=== PATIENT | male | born 1945 | race Caucasian/White ===

== ENCOUNTER 2024-11-01 13:25 | Outpatient (AMB) | payer MEDICARE, BC, SELFPAY ==
--- NOTE | 2024-11-01 13:27 | MHC.OFFVIS ---
Vital Signs 11/01/24 13:29 Height 6 ft Weight 194 lb BMI 26.3 Intake Visit Reasons: Right shoulder pain and weakness Intake Note: Bulmaro is a 78 year old left hand dominant male who presents with complaints of progressively worsening right shoulder pain and weakness. The patient did undergo left shoulder rotator cuff repair surgery in 2016. He reports minimal discomfort in his left shoulder. He describes his right shoulder pain as sharp and severe in nature. Most of the pain is along the lateral aspect of his shoulder. His right shoulder pain has gotten worse over the last year in spite of continued non operative treatments. He has tried physical therapy exercises which aggravated his pain. Has also tried Tylenol and anti-inflammatory medicines which gave him minimal relief. The patient reports pain and weakness when lifting his right hand above shoulder height. Allergies No Known Allergies Allergy (Verified 11/01/24 13:30) Medication List - Last Reconciled 11/01/24 by Shalom Lee MD No Known Home Meds Physical Exam Vital Signs: BMI result Body Mass Index 26.3 Const Other: Well-nourished well-developed very friendly male awake alert and oriented x3 in no acute distress Extrem Other: Right shoulder examination shows decreased range of motion when compared to his left shoulder, 4/5 strength with supraspinatus testing, positive impingement signs, tenderness over his acromioclavicular joint, Results Reviewed Results Reviewed: X-ray report of the patient's right shoulder shows acromioclavicular joint narrowing, no acute bony abnormalities Assessment & Plan Assessment & Plan (1) Rotator cuff insufficiency of right shoulder: Code(s): M25.311 - Other instability, right shoulder Category: Medical Plan Mr. Porter presents with right shoulder pain and weakness due to impingement syndrome and possible rotator cuff tearing. Thus, I will send the patient for an MRI of his right shoulder for further evaluation. I will see him back once the MRI is completed to discuss the findings and treatment options. Feel free to call me at any time should questions regarding his orthopedic management arise. I spent 20 minutes in reviewing the patient's records and imaging studies, seeing the patient and documenting in the medical record. Orders: Orders MR shoulder RT wo con Today M25.311 - Other instability, right shoulder Coding Level of Care Code New Pt Level 3 (64144) Complex EM visit Add On G2211 Diagnoses Rotator cuff insufficiency of right shoulder M25.311
[2024-11-01 13:29] VITALS: BMI 26.3
== END 2024-11-01 13:49 | disposition home or self-care (01) ==
LOC: HO.HOS 13:25
PROVIDERS: Visit Provider Orthopaedic Surgery
DX: M25.311 Other instability, right shoulder (principal)
CPT/HCPCS: 99203; G2211

== ENCOUNTER → 2024-11-01 13:25 | Outpatient (BNVA) | payer BC, MEDICARE, SELFPAY | PROVIDERS: Visit Provider Orthopaedic Surgery | DX: M25.311 Other instability, right shoulder (principal) | CPT/HCPCS: 99202 ==

== ENCOUNTER → 2024-11-07 07:37 | Outpatient (BNV) | payer MEDICARE, BC, SELFPAY | PROVIDERS: PCP Internal Medicine; Visit Provider Radiology Diagnostic Radiology | DX: M25.511 Pain in right shoulder (principal) | CPT/HCPCS: 73221 ==

== ENCOUNTER 2024-11-07 07:59 | Outpatient (REF) | payer MEDICARE, BC, SELFPAY ==
--- NOTE | ~2024-11-07 | MR_ITS ---
EXAMINATION: MR SHOULDER, RIGHT CLINICAL INFORMATION: 78-year-old male with chronic right shoulder pain times years. History of osteoarthritis. Instability, right shoulder. COMPARISON: None TECHNIQUE: Multiplanar multisequence MR imaging of the right shoulder was done without IV contrast. Examination performed on a 1.5 Shanti Siemens unit utilizing standard sequences. FINDINGS: Rotator Cuff and Biceps Tendon: Supraspinatus: Full thickness tear in the critical zone measuring 8 mm coronal plane and 6 mm sagittal plane, with fluid gap. The anterior fibers remain intact. There is an associated myotendinous tear extending to the bursal surface (series 8, images 13-15). No significant atrophy of the muscle belly. Infraspinatus: No full-thickness tear or tendinous retraction. Mildly increased intrasubstance signal in the distal tendon consistent with tendinopathy. There is an interstitial myotendinous delamination type focal tear (series 9, image 19). There is a normal muscle belly. Subscapularis: Intact without discrete tear. Mild intrasubstance increased signal is consistent with tendinopathy. Normal muscle belly. Teres Minor: Intact and normal in signal. Normal muscle belly. Biceps Long Head: Normally located within the bicipital groove. Normal morphology. Mildly increased fluid within the tendon sheath. Mild increased signal within the tendon in the rotator interval consistent with tendinopathy. The bicipital anchor is intact. AC Joint and Acromiohumeral Arch: Moderate hypertrophic arthropathy with joint capsular distention and mild periarticular edema. There is both superior and undersurface significant spurring. There is moderate encroachment upon the supraspinatus outlet (series 8, image 12). There is a type II acromion. There are tiny subacromial spurs. Glenohumeral Joint and Labrum: There is normal joint fluid present. There is mild superficial cartilaginous thinning and eburnation, without discrete full-thickness defects. There is minimal marginal osteophytic spurring. No subchondral bone plate edema identified. The glenoid labrum demonstrates increased linear T2 signal within the superior labrum extending into the anterior labrum to the equator, suspicious for tearing. The posterior labrum, and inferior labrum appear intact. Osseous Structures: Aside from AC joint periarticular edema, no abnormal signal identified. Spino-glenoid Notch: Normal. Quadrilateral Space: Normal. Other: Fluid in the subacromial/subdeltoid bursa, nonspecific in the setting of full-thickness rotator cuff tear. No thickening of the glenohumeral ligaments identified. MR/MR shoulder RT wo con IMPRESSION: 1. Full-thickness tear of the supraspinatus tendon within the critical zone as detailed. Associated myotendinous injury. No atrophy of the muscle belly. 2. Tendinopathy of the subscapularis and infraspinatus tendons without discrete tear. Associated interstitial myotendinous injury of the infraspinatus. 3. Findings highly suggestive of anterior and superior labral tearing. 4. Moderate spurring of the AC joint, with moderate encroachment upon the supraspinatus outlet. 5. Mild osteoarthrosis of the glenohumeral joint. Electronically signed by: Steven Lanier MD 11/07/2024 03:43 PM EDT
--- OUTSIDE RECORDS SUMMARY | 2024-11-07 08:06 | XMS_ITS | Continuity of Care Document ---
Author Organization [facility] Address [address] [place] [phone] Care Team Providers Care International Affairs Vice President Name Role Phone Zoey Wells MD Primary Care Physician [phone] Encounter [place] Date(s): 09/10/24 - 10/10/24 [facility] [address] [place] [phone] Encounter Type: Triage Allergies, Adverse Reactions, Alerts No Known Allergies Immunizations Given and Recorded Vaccine Date Status Refusal Reason influenza virus vaccine, inactivated 06/25/23 Tai rded influenza virus vaccine, inactivated 05/24/22 Tai rded influenza virus vaccine, inactivated 04/30/21 Tai rded influenza virus vaccine, inactivated 04/18/20 Tai rded influenza virus vaccine, inactivated 07/27/19 Tia rded influenza virus vaccine, inactivated 08/10/18 Tai rded influenza virus vaccine, inactivated 06/07/17 Tai rded influenza virus vaccine, inactivated 09/10/16 Tai rded influenza virus vaccine, inactivated 07/04/14 Tai rded influenza virus vaccine, inactivated 08/31/13 Tai rded influenza virus vaccine, inactivated 06/19/12 Tai rded [id number] 12y+ bivalent booster vax 05/24/22 Recorded SARS-CoV-2 (COVID-19) mRNA BNT-162b2 vac 07/01/21 Recorded SARS-CoV-2 (COVID-19) mRNA BNT-162b2 vac 11/24/20 Recorded SARS-CoV-2 (COVID-19) mRNA BNT-162b2 vac 11/03/20 Recorded zoster vaccine, inactivated 08/18/20 Recorded zoster vaccine, inactivated 08/16/20 Recorded zoster vaccine, inactivated 04/22/20 Recorded tetanus/diphtheria/pertussis, acel(Tdap) 08/15/20 Recorded tetanus/diphtheria/pertussis, acel(Tdap) 06/18/09 Recorded tetanus-diphtheria toxoids (Td) 04/18/20 Recorded tetanus-diphtheria toxoids (Td) 12/18/02 Recorded pneumococcal 13-valent vaccine 01/08/16 Recorded Zoster Vaccine Live 10/15/13 Recorded pneumococcal 23-valent vaccine 07/11/12 Recorded Medications Colace sodium 100 mg oral capsule 100 mg, 1, capsule, By Mouth, 2 times a day, # 20 capsule, Refills 0, Tot. Refills 0, Maintenance, 06/06/24 11:49:00 AM EDT, Route to Pharmacy Electronically, [facility]/pharmacy #[id number], Partial fill upon patient request if the prescription is for a schedule II opioid drug., 185, cm, 06/06/24 8:25:00 EDT, H eight, 84.3, kg, 06/06/24 8:25:00 EDT, Dry Weight Start Date: 06/06/24 Stop Date: 06/16/24 Status: Ordered Quantity: 20.0 Unit: capsule Repeat number: 1 Multi Vitamin+ 0 Refills, Maintenance, 12/08/23 8:59:00 AM EDT, Partial fill upon patient request if the prescription is for a schedule II opioid drug. Start Date: 12/08/23 Status: Ordered Repeat number: 1 omeprazole 20 mg oral delayed release tablet 1 tablet = 20 mg, By Mouth, 2 times a day, # 60 tablet, 1 Refills, Maintenance, 06/12/24 3:25:00 PMEDT, EC Tablet, [facility]acy #[id number], Partial fill upon patient request if the prescription is for a schedule II opioid drug., 185, cm, 06/12/24 14:12:00 EDT, Height, 84.3, kg, 06/06/24 8:25:00 EDT, Dry Weight Start Date: 06/12/24 Status: Ordered Quantity: 60.0 Unit: tablet Repeat number: 2 tiZANidine 4 mg oral tablet 4 mg, 1, tablet, By Mouth, Daily at bedtime, as needed, # 30 tablet, Refills 0, Tot. Refills 0, Maintenance, 06/06/24 11:49:00 AM EDT, Route to Pharmacy Electronically, [facility]/pharmacy #[id number], Partial fill upon patient request if the prescription is for a schedule II opioid drug., 185, cm, 06/06/24 8:25:00 EDT, Height, 84.3, kg, 06/06/24 8:25:00 EDT, Dry Weight Start Date: 06/06/24 Stop Date: 07/06/24 Status: Ordered Quantity: 30.0 Unit: tablet Repeat number: 1 Problem List Condition Confirmation Course Effective Dates Status H ealth Status Informant Gait disorder Confirmed Active Aortic atherosclerosis Confirmed Active Carpal tunnel syndrome Confirmed Active Cervical disc disease Confirmed Active Chronic pain in left shoulder Confirmed Active Alcohol use Confirmed Active Elevated BP without diagnosis of hypertension Confirmed Active Right wrist fracture Confirmed Active Fracture of right ankle Confirmed Active S/P laminectomy Confirmed Active History of BPH Confirmed Active Hiccups Confirmed Active S/P bilateral inguinal hernia repair Confirmed Active H/O rotator cuff surgery Confirmed Active [place]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 Kidney lesion Confirmed Active Left inguinal hernia Confirmed Active Abnormal liver function tests Confirmed Active Neck pain Confirmed Active Numbness Confirmed Active Osteoarthritis Confirmed Active Left shoulder pain Confirmed Active Palpitations Confirmed Active Medicare annual wellness visit, subsequent Confirmed Active Peripheral neuropathy Confirmed Active Polyclonal gammopathy Confirmed Active Right shoulder pain Confirmed Active Tubular adenoma Confirmed Active Social History Social History Type Response Smoking Status Former smoker, quit more than 30 days ago entered on: 08/13/21 Sex Sex Representation Male (finding) Implantable Device List Procedure Provider Procedure Date Device Type Site Repair Hernia Inguinal Open Jairo Morales MD 03/09/23 Un known Groin Left Device Identifier Serial Number Lot or Batch Number Manufacturing Date Expiration Date Distinct Identification Code MRI Safety Implantable Status Assigning Authority Unknown Unknown [id number] Unknown 06/11/27 Unknown Unknown Active Unknown Patient Care team information Care Team Personnel Name: Zoey Wells MD Position: [facility] Physician - Primary Care Member Role: PCP Address: [address] [place] [id number] Telecom: Care Team Related Persons Name: GHAZAL HEALY Insurance Providers Guarantor name: HADLEY HEALY Health Plan Information #: 1 Payer: MEDICARE PART B OUTPT Member Number: NA Policy Number: NA Group Number: NA Health Plan Information #: 2 Payer: BLUE MEDICARE SUPPL Member Number: NA Policy Number: NA Group Number: NA
--- OUTSIDE RECORDS SUMMARY | 2024-11-07 08:06 | XMS_ITS | Encounter Summary ---
Author Organization [facility] Address [address] [place] [phone] Phone Care Team Providers Care Duct Maker Name Role Phone Unavailable Primary Care Provider Unavailabl e Reason for Visit * MRI/CAT Scan - Closed Specialty Diagnoses / Procedures Referred By Contac t Referred To Contact Procedures MRI Outside Upper Extremity (No Interpretation) Salvador Lee MD [address] [place], [place] [phone] Email: [email or web address] Referral ID Status Reason Start Date Expiration Date Visits Re quested Visits Authorized [id number] Closed 03/15/2017 03/15/2018 1 1 Encounter Details Date Type Department Care Team (Late st Contact Info) Description 06/15/2016 Hospital Encounter [facility] [address] [place] [phone] Salvador Lee MD [address] [place] [phone] [email or web address] Social History Tobacco Use Types Packs/Day Years [...] Recorded Sex Assigned at Not on file Gender Identity Not on file Sexual Orientation Not on file documented as of this encounter Plan of Treatment Not on file documented as of this encounter Procedures Procedure Name Priority Date/Time Associated Diagnosis Comments MRI UPPER EXTREMITY OUTSIDE (NO INTERPRETATION) Routine 06/15/2016 12:00 AM EDT documented in this encounter Results * MRI Outside Upper Extremity (No Interpretation) (06/15/2016 12:00 AM EDT) Narrative [facility] - 03/15/2017 2:28 PM EDT This study is for PACS storage only and not for interpretation. Salvador Lee MD IMG OUTSIDE IMAGING W/OUT INTERPRETATION [facility] documented in this encounter Visit Diagnoses Not on filedocumented in this encounter Additional Source Comments The information contained in this document represents components of the legal health record. It is not the complete legal health record.[facility]
--- OUTSIDE RECORDS SUMMARY | 2024-11-07 08:06 | XMS_ITS | Data Portability ---
Author Organization [place] - [facility] [place], [facility] Address [address] [place] [phone] Assessment No assessment recorded. Plan of Treatment Reminders Order Date Submit Date Provider Last Modified By Organization Details Last Modified Time Details Appointments None recorded. Lab CBC w/ auto diff 2022 023 [employer] [facility], [address] [place] [address], [address], 3 12:59:56 CMP, serum or plasma 2022 023 [employer] [facility], [address] [place] [address], [address], 3 12:59:56 Referral general surgeon referral 2022 023 [email or web address] 43 Tye Gama MD, [address] [place] [address], [address], 3 08:04:30 Procedures None recorded. Surgeries None recorded. Imaging CT, abdomen + pelvis, w/ contrast 2022 023 tamar [facility] [address] [place], [address], 3 20:20:36 Medication Orders None recorded. Patient TargetsNo targets recorded. Patient Instructions Encounter Date Encounter Id Patient Instructions Last Modified By Organization Details Last Modified Time 11/16/2022 [id number] abdominal pain: care instructions [email or web address] Not available 11/16/2022 10:11:24 hernia: care instructions [email or web address] Not available 11/16/2022 10:11:24 We will obtain b asic labs along with a CT scan of the abdomen and pelvis. This will rule out hernia and any underlying abnormality. The patient is afebrile no abdominal pain pain is intermittent and easily reducible no evidence of incarceration on physical examination. We will give a general surgeon referral. And obtain CT scan of the abdomen and pelvis. The patient and the provider discussed action, dose, frequency and side effects of all medications. We also discussed any sided effects and contraindications to taking the medications. The differential diagnosis, working clinical impression and treatment have been discussed in detail with the patient and/or caregivers. Medical decision making was shared with the patient who agrees with the current plan of care and feels comfortable to be discharged. They have been given the opportunity ask questions and they demonstrate insight regarding evaluation of emergent medical condition and to the follow-up instructions and agree to follow up with her primary doctor as well as specialist if indicated on discharge. As discussed at bedside there also informed if any new symptoms developed, complaints, worsening symptoms or they cannot obtain follow-up to immediately return to the emergency department for re-evaluations. The test performed have a limitations due to the complexity of the body's makeup and may need to be repeated and additional testing obtained to identify bodies underlying cause of complaints. Patient and responsible constitution party were given information regarding the discharge instructions findings of the exam and workup urgent care were discussed and I answered all questions about the patient's condition and treatment plan that were asked. The patients voiced full understand prior to discharge. [email or web address] Not available 11/16/2022 10:11:07 Reason for Referral General Surgeon Referral for Hernia of anterior abdominal wall Referring Physician: Ketan Carroll, Urgent Care, Encounter Date: 11/16/2022 Results Created Date Observation Date Name Description Value Unit Range Abnormal Flag Note LastModifiedBy Organization Detail LastModifiedTime Result Notes None recorded. Medical Equipment None Reported. Allergies No known drug allergies Medications Name Sig Start Date Stop Date Status Note LastModified by Organization Details LastModified Time chlorhexidine gluconate 0.12 % mouthwash 11/16 completed Not Available Not Available Not Available Vitals Date Recorded Body weight Heart rate Respiratory rate Oxygen saturation Oxygen saturation in Arterial blood by Pulse oximetry Body temperature Body mass index (BMI) Body height Systolic blood pressure Diastolic blood pressure Provider Name and Address Organization Details Last Updated DateTime 3 69117.2 9 g 78 /min 16 /min 98 % 98 % 97.8 [degF] 26.9 kg/m2 182.88 cm 142 mm[Hg] 70 mm[Hg] Theresa Waqar, X-ray [facility] [place] 09:57:51 Social History None recorded. Functional Status None recorded. Mental Status None recorded. Family History Nothing Reported. Medical History No medical history recorded. Past Encounters Encounter ID Performer Location Encounter Start Date Encounter Closed Date Diagnosis/Indication Diagnosis SNOMED-CT Code Diagnosis ICD10 Code Diagnosis Note [id number] KETAN CARROLL NP [facility] [address] [place] [phone] 11/16/2022 09:35:47 11/16/2022 11:12:51 Hernia of anterior abdominal wall 997506703 K43.9 Health Concerns Section Related Observation LastModified by Organization Detai ls LastModified Time None Recorded Concern Status LastModified by Organization Details LastModified Time None Recorded Advance Directives Directive None Recorded Payers Encounter Date Sequence Insurance Name Policy Number Policy Agustin Covered Member ID Agustin Member ID Guarantor Name 11/16/2022 1 [place] Bulmaro Porter [id number] Bulmaro Porter Notes Date Note Type Note Provider Name and Address Organization Details Recorded Time 11/16/2022 text/html This is a 80-year-old male patient presents to the urgent care he had surgery back and 1998 for a inguinal hernia surgery he has noticed pain over the last year intermittently in the left lower pelvic region. And feels that he may notice another hernia that is present. He has had some warm sensation in his area and also also noticed that he has had some intermittent discomfort. The patient states no nausea vomiting or diarrhea no rectal bleeding. No fever or chills. No systemic symptomatologies. Pain is exacerbated when leaning forward. KETAN CARROLL NP [address] [place], [phone], [address] 11/16/2022 10:11:50
--- OUTSIDE RECORDS SUMMARY | 2024-11-07 08:06 | XMS_ITS | Clinical Summary ---
Author Organization [facility] Address [address] [place] [address] Care Team Providers Care Shipping Inspector Name Role Phone Unavailable Primary Care Provider Unavailabl e Surgical History Surgery Date Site/Laterality Comments OTHER SURGICAL HISTORY 06/15 PROCEDURE: LA OPEN TREATMENT RADIAL SHAFT FRACTURE; COMMENT: at wrist with 3 pins HERNIA REPAIR PROCEDURE: HISTORICAL HERNIA REPAIR/ING; COMMENT: Left HERNIA REPAIR age 15 PROCEDURE: HISTORICAL HERNIA REPAIR/ING; COMMENT: Right inguinal ANKLE SURGERY R distal tib Fx PROCEDURE: HISTORICAL ANKLE SURGERY; COMMENT: Fracture set, surg for bone spurs COLONOSCOPY 03/17 PROCEDURE: HISTORICAL COLONOSCOPY; COMMENT: good for [address] William OTHER SURGICAL HISTORY 05/18/13 PROCEDURE: COLON CA SCRN NOT HI RSK IND; COMMENT: tics; repeat in ten yrs ROTATOR CUFF REPAIR 07/26/16 Left PROCEDURE: HISTORICAL ROTATOR CUFF REPAIR; COMMENT: Dr. Lee, [facility], infraspinatus tear, spur TONSILLECTOMY PROCEDURE: HISTORICAL TONSILLECTOMY Medical History Medical History Date Comments Unspecified arthropathy, ankle and foot 6 DX:Unspecified arthropathy, ankle and foot; COMMENT: skiing distal tib Fx '74, spur surg '80 Amblyopia 07/30/08 DX:Amblyopia Cervicalgia 06/15/2009 DX:Cervicalgia BPH (benign prostatic hyperplasia) DX:BPH (benign prostatic hyperplasia) Family History Medical History Relation Name Comments No Known Problems Aunt No Known Problems Brother No Known Problems Father No Known Problems Maternal Grandfather No Known Problems Maternal Grandmother Glaucoma Mother Macular degeneration Mother No Known Problems Other No Known Problems Paternal Grandfather No Known Problems Paternal Grandmother No Known Problems Sister 1 No Known Problems Sister 2 No Known Problems Uncle Blindness Neg Hx Cataracts Neg Hx Strabismus Neg Hx Relation Name Status Comments Aunt Brother Father (Age 87) bradycardi a, pacemaker Maternal Grandfather Maternal Grandmother Mother (Age 97) blind glau coma, thyroid, stroke Other Paternal Grandfather Paternal Grandmother Sister 1 (Age 35) Diabetes t ype 1 Sister 2 (Age 63) Multiple s clerosis, RA, bedridden, 12/2011 Uncle Social History Tobacco Use Types Packs/Day Years Used Date Smoking Tobacco: Former Cigarettes Smokeless Tobacco: Never Alcohol Use Standard Drinks/Week Comments Yes 0 (1 standard drink = 0.6 oz pur e alcohol) Sex and Gender Information Value Date Recorded Sex Assigned at Not on file Legal Sex Male 8:44 AM EST Gender Identity Not on file Sexual Orientation Not on file Obstetrics History Plan of Treatment Health Maintenance Due Date Last Done Comments RSV Immunization Patients 60+ Years Old (1 - 1-dose 75+ series) 2021 COVID-19 Vaccine ( season) 2024 07/01/2021, 11/24/2020, 11/03/2020 Influenza Vaccine (#1) 2024 , 04/18/2020, 07/23/2019, Additional history exists Cholesterol Screening (Lipid Panel) 06/05/2024 Depression Screening 06/05/2024 Falls Risk Assessment 06/05/2024 Hepatitis C Screening 06/05/2024 Social Influencers of Health Screening 06/05/2024 DTaP,Tdap,and Td Vaccines (4 - Td or Tdap) 08/15/2030 08/15/2020, 04/18/2020, 06/18/2009 Pneumococcal Vaccine: 50+ Years Completed 01/08/2016, 07/11/2012 Zoster Vaccines Completed 08/15/2020, 03/2020, 10/15/2013 HIB Vaccines Aged Out No longer eligi ble based on patient's age to complete this topic HPV Vaccines Aged Out No longer eligi ble based on patient's age to complete this topic Hepatitis A Vaccines Aged Out No long er eligible based on patient's age to complete this topic Hepatitis B Vaccines Aged Out No long er eligible based on patient's age to complete this topic IPV Vaccines Aged Out No longer eligi ble based on patient's age to complete this topic MMR Vaccines Aged Out No longer eligi ble based on patient's age to complete this topic Meningococcal ACWY Vaccine Aged Out N o longer eligible based on patient's age to complete this topic Meningococcal B Vacine Aged Out No lo nger eligible based on patient's age to complete this topic RSV Immunization Patients Under 20 months Aged Out No longer eligible based on patient's age to complete this topic Varicella Vaccines Aged Out No longer eligible based on patient's age to complete this topic Advance Directives Documents on File Type Date Recorded Patient Church Warden Expl anation Health Care Decision (hx) 07/19/2016 AD LIZBET DIRECTIVE
--- OUTSIDE RECORDS SUMMARY | 2024-11-07 08:06 | XMS_ITS | Encounter Summary ---
Author Organization [facility] Address [address] [place] [address] [place] [phone] Phone Care Team Providers Care Continuous Mining Machine Coal Miner Name Role Phone Danielle Hermosillo MD Primary Care Pro vider Encounter Details Date Type Department Care Team (Late st Contact Info) Description 03/15/2017 Procedure Pass [facility] [address] [place] [address] Social History Tobacco Use Types Packs/Day Years Used Date Smoking Tobacco: Never Assessed Sex and Gender Information Value Date Recorded Sex Assigned at Not on file Gender Identity Not on file Sexual Orientation Not on file documented as of this encounter Plan of Treatment Not on file documented as of this encounter Visit Diagnoses Not on filedocumented in this encounter Care Teams Continuous Mining Machine Coal Miner Relationship Specialty Start Date End Date Danielle Hermosillo MD [address] [place] [address] PCP - General Internal Medicine 01/20/17 documented as of this encounter Additional Source Comments The information contained in this document represents components of the legal health record. It is not the complete legal health record.[facility]
--- OUTSIDE RECORDS SUMMARY | 2024-11-07 08:06 | XMS_ITS | Continuity of Care Document ---
Author Organization [facility] Address [address] [place] [address]- Care Team Providers Care Casting Room Helper Name Role Phone Russell HILL, Zoey Amaya Primary Care Physician Encounter [facility] Date(s): 09/10/24 - 10/10/24 [facility] [place] [address] [place], [place] [address] Encounter Type: Triage Allergies, Adverse Reactions, Alerts No Known Allergies Immunizations Given and Recorded Vaccine Date Status Refusal Reason influenza virus vaccine, inactivated 06/25/23 Tai rded influenza virus vaccine, inactivated 05/24/22 Tai rded influenza virus vaccine, inactivated 04/30/21 Tai rded influenza virus vaccine, inactivated 04/18/20 Tai rded influenza virus vaccine, inactivated 07/27/19 Tai rded influenza virus vaccine, inactivated 08/10/18 Tai rded influenza virus vaccine, inactivated 06/07/17 Tai rded influenza virus vaccine, inactivated 09/10/16 Tai rded influenza virus vaccine, inactivated 07/04/14 Tai rded influenza virus vaccine, inactivated 08/31/13 Tai rded influenza virus vaccine, inactivated 06/19/12 Tai rded [id number] 12y+ bivalent booster vax 05/24/22 Recorded SARS-CoV-2 [...] 11:49:00 AM EDT, Route to Pharmacy Electronically, [facility]/pharmacy #[id number], Partial fill upon patient request if [...] 11:49:00 AM EDT, Route to Pharmacy Electronically, [facility]/pharmacy #[id number], Partial fill upon patient request if [...] Active H/O rotator cuff surgery 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 Kidney lesion [...] Safety Implantable Status Assigning Authority Unknown Unknown [id number] Unknown 06/11/27 Unknown Unknown Active Unknown Patient Care team information Care Team Personnel Name: Zoey Wells MD Position: S Physician - Primary Care Member Role: PCP Address: [address] [place] [phone]- Telecom: Care Team Related Persons Name: GHAZAL HEALY Insurance Providers Guarantor name: HADLEY HEALY Health Plan Information #: 1 Payer: MEDICARE PART B OUTPT Member Number: NA Policy Number: NA Group Number: NA Health Plan Information #: 2 Payer: BLUE MEDICARE SUPPL Member Number: NA Policy Number: NA Group Number: NA
--- OUTSIDE RECORDS SUMMARY | 2024-11-07 08:06 | XMS_ITS | Clinical Summary ---
Author Organization [facility] Address [address] [place] [address] Phone Care Team Providers Care Stock Drier Tender Name Role Phone Danielle Hermosillo MD Primary Care Pro vider Social History Tobacco Use Types Packs/Day Years [...] on file Sexual Orientation Not on file Plan of Treatment Health Maintenance Due Date Last Done Comments LIPID PANEL 1946 DEPRESSION SCREENING 1958 SMOKING Hx and SMOKELESS TOBACCO SCREENING 11/21/1959 HEPATITIS C SCREENING 1964 RSV VACCINE (1 - 1-dose 75+ series) 2021 INFLUENZA VACCINE (#1) 2024 , 07/27/2019, 08/10/2018, Additional history exists COVID-19 VACCINE ( season) 2024 11/03/2020 Adult Td,Tdap Booster 08/15/2030 08/15/2020 , 04/18/2020, 06/18/2009, Additional history exists PNEUMOCOCCAL VACCINES (50+ years) Completed 01/08/2016, 07/11/2012 ZOSTER VACCINES Completed 08/18/2020, 07/17, 04/22/2020, Additional history exists HEPATITIS A VACCINES Aged Out No long er eligible based on patient's age to complete this topic HIB VACCINES Aged Out No longer eligi ble based on patient's age to complete this topic MENINGOCOCCAL VACCINES (ACWY) Aged Out No longer eligible based on patient's age to complete this topic Medical Devices Not on file Care Teams Stock Drier Tender Relationship Specialty Start Date End Date Danielle Hermosillo MD [address] [place] [address] PCP - General Internal Medicine 01/20/17 Additional Source Comments The information contained in this document represents components of the legal health record. It is not the complete legal health record.[facility]
--- OUTSIDE RECORDS SUMMARY | 2024-11-07 08:06 | XMS_ITS | Continuity of Care Document ---
Author Organization [facility] Address [address] [place] [address]- Care Team Providers Care Getter Welder Name Role Phone Russell HILL, Zoey Amaya Primary Care Physician [phone] Encounter [facility] Date(s): 09/18/24 - 10/18/24 [facility] [address] [place] [address]- Encounter Type: Triage Allergies, Adverse Reactions, Alerts [...] influenza virus vaccine, inactivated 06/19/12 Tai rded [id number] 12y+ bivalent booster vax 05/24/22 Recorded SARS-CoV-2 [...] 11:49:00 AM EDT, Route to Pharmacy Electronically, [facility]/pharmacy #[id number], Partial fill upon patient request [...] 11:49:00 AM EDT, Route to Pharmacy Electronically, [facility]/pharmacy #[id number], Partial fill upon patient request [...] Active H/O rotator cuff surgery 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 Kidney lesion [...] Safety Implantable Status Assigning Authority Unknown Unknown [id number] Unknown 06/11/27 Unknown Unknown Active Unknown Patient Care team information Care Team Personnel Name: Zoey Wells MD Position: [facility] Physician - Primary Care Member Role: PCP Address: [address] [place] [phone]- Telecom: Care Team Related Persons Name: GHAZAL HEALY Insurance Providers Guarantor name: HADLEY HEALY Health Plan Information #: 1 Payer: MEDICARE PART B OUTPT Member Number: NA Policy Number: NA Group Number: NA Health Plan Information #: 2 Payer: [facility] ELECT Member Number: NA Policy Number: NA Group Number: NA Health Plan Information #: 3 Payer: BLUE MEDICARE SUPPL Member Number: NA Policy Number: NA Group Number: NA
--- OUTSIDE RECORDS SUMMARY | 2024-11-07 08:06 | XMS_ITS | Continuity of Care Document ---
Author Organization [facility]. If a dditional information is needed, contact Health Information Management at [phone] Address [address] [place] [address] Phone Care Team Providers Care Design Consultant Name Role Phone Unavailable Unavailable Unavailable Unavailable Unavailable Unavailable Unavailable Unavailable Unavailable Unavailable Unavailable Unavailable Unavailable Unavailable Unavailable Unavailable Unavailable Unavailable Problems Left inguinal hernia Onset:16-Nov-2022 Papi Pastor DO Allergies and Adverse Reactions No Known Allergies(Allergy) Onset: 08-Oct-2021 Medications calcium chloride 0.2 MG/ML / potassium chloride 0.3 MG/ML / sodium chloride 6 MG/ML / sodium lactate 3.1 MG/ML Injectable Solution;Provider Administration Instructions:* PACU order, D/C after transfer * Hina Hayward MD Start:12-Oct-2021 Status:Discontinued Comments:Provider Administration Instructions:* PACU order, D/C after transfer * Propofol 10 MG/ML Injectable Suspension [Diprivan] Quantity:1 Jaquan Torres MD Start:12-Oct-2021 Status:Discontinued Propofol 10 MG/ML Injectable Suspension [Diprivan] Quantity:1 Jaquan Torres MD Start:12-Oct-2021 1 ML ePHEDrine sulfate 50 MG /ML Injection;Provider Administration Instructions:< >< >< >Caution, Look Alike Sound Alike< >< >< > Quantity:1 Jaquan Torres MD Start:12-Oct-2021 Comments:Provider Administration Instructions:< >< >< >Caution, Look Alike Sound Alike< >< >< > 5 ML phenylephrine hydrochloride 0.1 MG/ML Injection [Biorphen] Quantity:1 Jaquan Torres MD Start:12-Oct-2021 lidocaine hydrochloride 10 MG/ML Injectable Solution Quantity:1 Jaquan Torres MD Start:12-Oct-2021 Status:Discontinued Social History Smoking Status Tobacco smoking consumption unknown Recorded: 4- Apr-2023
--- OUTSIDE RECORDS SUMMARY | 2024-11-07 08:06 | XMS_ITS | Encounter Summary ---
Author Organization [facility] Address [address] [place] [address] [place] [phone] Phone Care Team Providers Care Specimen Processor Name Role Phone Danielle Hermosillo MD Primary Care Pro vider Encounter Details Date Type Department Care Team (Late st Contact Info) Description 03/15/2017 Procedure Pass [facility] [address] [place] [address] Social History Tobacco Use Types Packs/Day Years Used Date Smoking Tobacco: Never Assessed Sex and Gender Information Value Date Recorded Sex Assigned at Not on file Gender Identity Not on file Sexual Orientation Not on file documented as of this encounter Plan of Treatment Not on file documented as of this encounter Visit Diagnoses Not on filedocumented in this encounter Care Teams Specimen Processor Relationship Specialty Start Date End Date Danielle Hermosillo MD [address] [place] [address] PCP - General Internal Medicine 01/20/17 documented as of this encounter Additional Source Comments The information contained in this document represents components of the legal health record. It is not the complete legal health record.[facility]
--- OUTSIDE RECORDS SUMMARY | 2024-11-07 08:06 | XMS_ITS | Encounter Summary ---
Author Organization [facility] Address [address] [place] [address] [place] [address] Phone Care Team Providers Care Web Applications Administrator Name Role Phone Danielle Hermosillo MD Primary Care Pro vider Encounter Details Date Type Department Care Team (Late st Contact Info) Description 03/15/2017 Procedure Pass [facility] [address] [place] [address] Social History Tobacco Use Types Packs/Day Years Used Date Smoking Tobacco: Never Assessed Sex and Gender Information Value Date Recorded Sex Assigned at Not on file Gender Identity Not on file Sexual Orientation Not on file documented as of this encounter Plan of Treatment Not on file documented as of this encounter Visit Diagnoses Not on filedocumented in this encounter Care Teams Web Applications Administrator Relationship Specialty Start Date End Date Danielle Hermosillo MD [address] [place] [address] PCP - General Internal Medicine 01/20/17 documented as of this encounter Additional Source Comments The information contained in this document represents components of the legal health record. It is not the complete legal health record.[facility]
== END 2024-11-07 08:00 | disposition home or self-care (01) ==
LOC: HO.MRI 07:59
PROVIDERS: PCP Internal Medicine; Visit Provider Orthopaedic Surgery
DX: M25.311 Other instability, right shoulder (principal)
CPT/HCPCS: 73221

== ENCOUNTER 2024-11-13 14:41 | Outpatient (AMB) | payer MEDICARE, BC, SELFPAY ==
--- NOTE | 2024-11-13 14:45 | A.OFFVIS_ITS ---
Vital Signs 11/13/24 14:46 Height 6 ft Weight 194 lb BMI 26.3 Intake Visit Reasons: Right shoulder pain and weakness Intake Note: Bulmaro is a 78 year old left hand dominant male who presents with complaints of progressively worsening right shoulder pain and weakness. The patient did undergo left shoulder rotator cuff repair surgery in 2016. He reports minimal discomfort in his left shoulder. He describes his right shoulder pain as sharp and severe in nature. Most of the pain is along the lateral aspect of his shoulder. His right shoulder pain has gotten worse over the last year in spite of continued non operative treatments. He has tried physical therapy exercises which aggravated his pain. Has also tried Tylenol and anti-inflammatory medicines which gave him minimal relief. The patient reports pain and weakness when lifting his right hand above shoulder height. The patient states that his right shoulder pain is now interfering with his ability to play golf and sleep well through the night. Allergies No Known Allergies Allergy (Verified 11/13/24 14:52) Medication List - Last Reconciled 11/14/24 by Shalom Lee MD No Known Home Meds Physical Exam Vital Signs: BMI result Body Mass Index 26.3 Const Other: Well-nourished well-developed very friendly male awake alert and oriented x3 in no acute distress Extrem Other: Bilateral upper extremity examination shows good capillary refill, no skin lesions noted, normal sensation light touch Right shoulder examination shows decreased range of motion when compared to his left shoulder, 4/5 strength with supraspinatus testing, positive impingement signs, tenderness over his acromioclavicular joint, no instability Results Reviewed Results Reviewed: MRI of the patient's right shoulder show severe acromioclavicular joint narrowing, a type 3 acromion, a full-thickness tear of the supraspinatus tendon Assessment & Plan Assessment & Plan (1) Rotator cuff insufficiency of right shoulder: Code(s): M25.311 - Other instability, right shoulder Category: Medical Plan Mr. Porter presents with progressively worsening right shoulder pain and weakness due to impingement syndrome, acromioclavicular joint arthritis and a full- thickness rotator cuff tear. I had a lengthy discussion with the patient regarding the treatment options. At this point he has failed continued non operative treatments. The risks and benefits of right shoulder surgery were discussed at length with the patient. The patient wishes to proceed with surgery. Surgery will involve right shoulder diagnostic arthroscopy with distal clavicle excision, acromioplasty and rotator cuff repair. The patient will contact my office to pick a surgery date when he is ready to do so. Feel free to call me at any time should questions regarding his orthopedic management arise. I spent 20 minutes in reviewing the patient's records and imaging studies, seeing the patient and documenting in the medical record. Coding Level of Care Code Est Pt Level 3 (90007) Complex EM visit Add On G2211 Diagnoses Rotator cuff insufficiency of right shoulder M25.311
[2024-11-13 14:46] VITALS: BMI 26.3
--- OUTSIDE RECORDS SUMMARY | 2024-11-13 17:33 | XMS_ITS | Continuity of Care Document ---
Author Organization [facility]. If a dditional information is needed, contact Health Information Management at [phone] Address [address] [place] [address] Phone Care Team Providers Care Volleyball Assistant Coach Name Role Phone Unavailable Unavailable Unavailable Unavailable [...] Suspension [Diprivan] Quantity:1 Jaquan Torres MD Start:12-Oct-2021 5 ML phenylephrine hydrochloride 0.1 MG/ML Injection [Biorphen] Quantity:1 Jaquan Torres MD Start:12-Oct-2021 1 ML ePHEDrine sulfate 50 MG /ML Injection;Provider Administration Instructions:< >< >< >Caution, Look Alike Sound Alike< >< >< > Quantity:1 Jaquan Torres MD Start:12-Oct-2021 Comments:Provider Administration Instructions:< >< >< >Caution, Look Alike Sound Alike< >< >< > lidocaine hydrochloride 10 MG/ML Injectable Solution Quantity:1 Jaquan Torres MD Start:12-Oct-2021 Status:Discontinued Social History Smoking Status Tobacco smoking consumption unknown Recorded: 4- Apr-2023
--- OUTSIDE RECORDS SUMMARY | 2024-11-13 17:33 | XMS_ITS | Data Portability ---
Author Organization [place] - [facility] [place], [facility] Address [address] [place] [phone] Assessment No assessment recorded. Plan of Treatment Reminders Order Date Submit Date Provider Last Modified By Organization Details Last Modified Time Details Appointments None recorded. Lab CBC w/ auto diff 2022 023 [facility], [address] [place] [address], [address], 3 12:59:56 CMP, serum or plasma 2022 023 [facility], [address] [place] [address], [address], 3 12:59:56 Referral general surgeon referral 2022 023 [email or web address] 43 Tye Gama MD, [address] [place] [address], [address], 3 08:04:30 Procedures None recorded. Surgeries None recorded. Imaging CT, abdomen + pelvis, w/ contrast 2022 023 tamar 43 [facility] [address] [place], [address], 3 20:20:36 Medication Orders None recorded. Patient TargetsNo targets recorded. Patient Instructions Encounter Date Encounter Id Patient Instructions Last Modified By Organization Details Last Modified Time 11/16/2022 [id number] abdominal pain: care instructions [email or web address] Not available [...] underlying cause of complaints. Patient and responsible alliance party were given information regarding the discharge [...] Address Organization Details Last Updated DateTime 3 99217.2 9 g 78 /min 16 /min 98 % 98 % 97.8 [degF] 26.9 kg/m2 182.88 cm 142 mm[Hg] 70 mm[Hg] Theresa Waqar, X-ray [facility]14 [place] 09:57:51 Social History None recorded. Functional Status None recorded. Mental Status None recorded. Family History Nothing Reported. Medical History No medical history recorded. Past Encounters Encounter ID Performer Location Encounter Start Date Encounter Closed Date Diagnosis/Indication Diagnosis SNOMED-CT Code Diagnosis ICD10 Code Diagnosis Note [id number] KETAN CARROLL NP [facility] [address] [place] [phone] 11/16/2022 09:35:47 11/16/2022 11:12:51 Hernia of anterior abdominal wall 890210755 K43.9 Health Concerns Section Related Observation LastModified by Organization Detai ls LastModified Time None Recorded Concern Status LastModified by Organization Details LastModified Time None Recorded Advance Directives Directive None Recorded Payers Encounter Date Sequence Insurance Name Policy Number Policy Augstin Covered Member ID Agustin Member ID Guarantor Name 11/16/2022 1 [place] Bulmaro Porter [id number] Bulmaro Porter Notes Date Note Type [...] when leaning forward. KETAN CARROLL NP [address] [place], [address], [address] 11/16/2022 10:11:50
--- OUTSIDE RECORDS SUMMARY | 2024-11-13 17:34 | XMS_ITS | Encounter Summary ---
Author Organization [facility] Address [address] [place] [address] [place] [address] Phone Care Team Providers Care Risk Consulting Treasury Director Name Role Phone Danielle Hermosillo MD Primary Care Pro vider Encounter Details Date Type Department Care Team (Late st Contact Info) Description 03/15/2017 Procedure Pass [facility] Imaging [address] [place] [address] Social History Tobacco Use Types Packs/Day Years Used Date Smoking Tobacco: Never Assessed Sex and Gender Information Value Date Recorded Sex Assigned at Not on file Gender Identity Not on file Sexual Orientation Not on file documented as of this encounter Plan of Treatment Not on file documented as of this encounter Visit Diagnoses Not on filedocumented in this encounter Care Teams Risk Consulting Treasury Director Relationship Specialty Start Date End Date Danielle Hermosillo MD [address] [place] [address] PCP - General Internal Medicine 01/20/17 documented as of this encounter Additional Source Comments The information contained in this document represents components of the legal health record. It is not the complete legal health record.[facility]
--- OUTSIDE RECORDS SUMMARY | 2024-11-13 17:34 | XMS_ITS | Encounter Summary ---
Author Organization [facility] Address [address] [place] [phone] Phone Care Team Providers Care Line Appliance Assembler Name Role Phone Unavailable Primary Care Provider Unavailabl e Reason for Visit * MRI/CAT Scan - Closed Specialty Diagnoses / Procedures Referred By Contac t Referred To Contact Procedures MRI Outside Upper Extremity (No Interpretation) Salvador Lee MD [address] [place], [place] [id number] Email: [email or web address] Referral ID Status Reason Start Date Expiration Date Visits Re quested Visits Authorized [id number] Closed 03/15/2017 03/15/2018 1 1 Encounter Details Date Type Department Care Team (Late st Contact Info) Description 06/15/2016 Hospital Encounter [facility] [address] [place] [id number] Salvador Lee MD [address] [place] [phone] [email or web address] Social History Tobacco Use Types Packs/Day Years [...] (No Interpretation) (06/15/2016 12:00 AM EDT) Narrative [facility] IMG INTERFACES - 03/15/2017 2:28 PM EDT This study is for PACS storage only and not for interpretation. Salvador Lee MD IMG OUTSIDE IMAGING W/OUT INTERPRETATION [facility] IMG INTERFACES documented in this encounter Visit Diagnoses Not on filedocumented in this encounter Additional Source Comments The information contained in this document represents components of the legal health record. It is not the complete legal health record.[facility]
--- OUTSIDE RECORDS SUMMARY | 2024-11-13 17:34 | XMS_ITS | Clinical Summary ---
Author Organization [facility] Address [address] [place] [address] Care Team Providers Care Dividend Deposit Voucher Clerk Name Role Phone Unavailable Primary Care Provider Unavailabl e Surgical History Surgery Date Site/Laterality Comments OTHER SURGICAL HISTORY 06/15 PROCEDURE: [place] OPEN TREATMENT RADIAL SHAFT FRACTURE; COMMENT: at [...] HISTORICAL ROTATOR CUFF REPAIR; COMMENT: Dr. Lee, [facility], infraspinatus tear, spur TONSILLECTOMY PROCEDURE: HISTORICAL [...] Documents on File Type Date Recorded Patient Road Test Examiner Expl anation Health Care Decision (hx) 07/19/2016 AD LIZBET DIRECTIVE
--- OUTSIDE RECORDS SUMMARY | 2024-11-13 17:34 | XMS_ITS | Continuity of Care Document ---
Author Organization [facility] Primary [facility] Address [address] [place] [address]- Care Team Providers Care Nailhead Operator Name Role Phone Russell HILL, Zoey Amaya Primary Care Physician Encounter [facility] Date(s): 10/10/24 - 11/09/24 [facility] [place] [address] [place], [place] [address] Encounter Type: Triage Allergies, Adverse Reactions, Alerts [...] influenza virus vaccine, inactivated 06/19/12 Tai rded [id number] 12y+ bivalent booster vax 05/24/22 Recorded SARS-CoV-2 [...] 11:49:00 AM EDT, Route to Pharmacy Electronically, [facility]/pharmacy #[id number], Partial fill upon patient request if the prescription is for a schedule II opioid drug., 185, cm, 06/06/24 8:25:00 EDT, H eight, 84.3, kg, 06/06/24 8:25:00 EDT, Dry Weight Start Date: 06/06/24 Stop Date: 06/16/24 Status: Ordered Quantity: 20.0 Unit: capsule Repeat number: 1 Ibuprofen Refills 0, Maintenance, 10/24/24 9:57:00 AM EDT, Partial fill upon patient request if the prescription is for a schedule II opioid drug. Start Date: 10/24/24 Status: Ordered Repeat number: 1 omeprazole 20 [...] 11:49:00 AM EDT, Route to Pharmacy Electronically, [facility]/pharmacy #[id number], Partial fill upon patient request if the prescription is for a schedule II opioid drug., 185, cm, 06/06/24 8:25:00 EDT, Height, 84.3, kg, 06/06/24 8:25:00 EDT, Dry Weight Start Date: 06/06/24 Stop Date: 07/06/24 Status: Ordered Quantity: 30.0 Unit: tablet Repeat number: 1 Tylenol Arthritis Caplet = 1,300 mg, By Mouth, Every 8 hours, 0 Refills, Maintenance, 10/24/24 9:58:00 AM EDT, Partial fill upon patient request if the prescription is for a schedule II opioid drug. 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 Kidney lesion [...] Safety Implantable Status Assigning Authority Unknown Unknown [id number] Unknown 06/11/27 Unknown Unknown Active Unknown Patient Care team information Care Team Personnel Name: Zoey Wells MD Position: S Physician - Primary Care Member Role: PCP Address: [address] [place] [id number] Telecom: Care Team Related Persons Name: GHAZAL HEALY Insurance Providers Guarantor name: HADLEY HEALY Health Plan Information #: 1 Payer: MEDICARE PART B OUTPT Member Number: NA Policy Number: NA Group Number: NA Health Plan Information #: 2 Payer: [employer] MEDICARE SUPPL Member Number: NA Policy Number: NA Group Number: NA
--- OUTSIDE RECORDS SUMMARY | 2024-11-13 17:34 | XMS_ITS | Encounter Summary ---
Author Organization [facility] Address [address] [place] [address] [place] [phone] Phone Care Team Providers Care Top And Seat Cover Fitter Name Role Phone Danielle Hermosillo MD Primary Care Pro vider Encounter Details Date Type Department Care Team (Late st Contact Info) Description 03/15/2017 Procedure Pass [facility] Imaging [address] [place] [address] Social History Tobacco Use Types Packs/Day Years Used Date Smoking Tobacco: Never Assessed Sex and Gender Information Value Date Recorded Sex Assigned at Not on file Gender Identity Not on file Sexual Orientation Not on file documented as of this encounter Plan of Treatment Not on file documented as of this encounter Visit Diagnoses Not on filedocumented in this encounter Care Teams Top And Seat Cover Fitter Relationship Specialty Start Date End Date Danielle Hermosillo MD [address] [place] [address] PCP - General Internal Medicine 01/20/17 documented as of this encounter Additional Source Comments The information contained in this document represents components of the legal health record. It is not the complete legal health record.[facility]
--- OUTSIDE RECORDS SUMMARY | 2024-11-13 17:34 | XMS_ITS | Clinical Summary ---
Author Organization [facility] Address [address] [place] [address] Phone Care Team Providers Care Computer Systems Administrator Name Role Phone Danielle Hermosillo MD [...] Medical Devices Not on file Care Teams Computer Systems Administrator Relationship Specialty Start Date End Date Danielle Hermosillo MD [address] [place] [address] PCP - General Internal Medicine 01/20/17 Additional Source Comments The information contained in this document represents components of the legal health record. It is not the complete legal health record.[facility]
--- OUTSIDE RECORDS SUMMARY | 2024-11-13 17:34 | XMS_ITS | Continuity of Care Document ---
Author Organization [facility] Primary [facility] Address [address] [place] [address]- Care Team Providers Care Senior Staff Consultant Name Role Phone Russlel HILL, Zoey Amaya Primary Care Physician Encounter [facility] Date(s): 10/10/24 - 11/09/24 [facility] [place] [address] [place], [place] [address] Encounter Type: Triage Allergies, Adverse Reactions, [...] influenza virus vaccine, inactivated 06/19/12 Tai rded [id number] 12y+ bivalent booster vax 05/24/22 Recorded SARS-CoV-2 [...] 11:49:00 AM EDT, Route to Pharmacy Electronically, [facility]/pharmacy #[id number], Partial fill upon patient request if [...] 11:49:00 AM EDT, Route to Pharmacy Electronically, [facility]/pharmacy #[id number], Partial fill upon patient request if [...] Active H/O rotator cuff surgery 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 Kidney lesion [...] Safety Implantable Status Assigning Authority Unknown Unknown [id number] Unknown 06/11/27 Unknown Unknown Active Unknown Patient Care team information Care Team Personnel Name: Zoey Wells MD Position: S Physician - Primary Care Member Role: PCP Address: [address] [place] [id number] Telecom: Care Team Related Persons Name: GHAZAL HEALY Insurance Providers Guarantor name: HADLEY HEALY Health Plan Information #: 1 Payer: MEDICARE PART B OUTPT Member Number: NA Policy Number: NA Group Number: NA Health Plan Information #: 2 Payer: [place] [employer] SUPPL Member Number: NA Policy Number: NA Group Number: NA
--- OUTSIDE RECORDS SUMMARY | 2024-11-13 17:34 | XMS_ITS | Encounter Summary ---
Author Organization [facility] Address [address] [place] [address] [place] [phone] Phone Care Team Providers Care Glass Products Inspector Name Role Phone Danielle Hermosillo MD Primary Care Pro vider Encounter Details Date Type Department Care Team (Late st Contact Info) Description 03/15/2017 Procedure Pass [facility] Imaging [address] [place] [address] Social History Tobacco Use Types Packs/Day Years Used Date Smoking Tobacco: Never Assessed Sex and Gender Information Value Date Recorded Sex Assigned at Not on file Gender Identity Not on file Sexual Orientation Not on file documented as of this encounter Plan of Treatment Not on file documented as of this encounter Visit Diagnoses Not on filedocumented in this encounter Care Teams Glass Products Inspector Relationship Specialty Start Date End Date Danielle Hermosillo MD [address] [place] [address] PCP - General Internal Medicine 01/20/17 documented as of this encounter Additional Source Comments The information contained in this document represents components of the legal health record. It is not the complete legal health record.[facility]
== END 2024-11-13 15:39 | disposition home or self-care (01) ==
LOC: HO.HOS 14:41
PROVIDERS: Visit Provider Orthopaedic Surgery
DX: M25.311 Other instability, right shoulder (principal); M75.41 Impingement syndrome of right shoulder
CPT/HCPCS: 99213; G2211

== ENCOUNTER → 2024-11-13 14:41 | Outpatient (BNVA) | payer MEDICARE, BC, SELFPAY | PROVIDERS: Visit Provider Orthopaedic Surgery | DX: M25.311 Other instability, right shoulder (principal) | CPT/HCPCS: 99212 ==

== ENCOUNTER 2025-02-11 09:57 | Day surgery (SDC) | payer MEDICARE, BC, SELFPAY ==
--- OUTSIDE RECORDS SUMMARY | 2025-01-03 14:11 | XMS_ITS | Data Portability ---
Author Organization [place] - [facility] [place], [facility] Address [address] [place] [phone] Assessment No assessment recorded. Plan of Treatment Reminders Order Date Submit Date Provider Last Modified By Organization Details Last Modified Time Details Appointments None recorded. Lab CBC w/ auto diff 2022 023 [employer] [facility], [address] [place] [address], [address], 3 12:59:56 CMP, serum or plasma 2022 023 [employer] [facility], [address] [place] [address], [address], 3 12:59:56 Referral general surgeon referral 2022 023 [email or web address] 43 Tye Gama MD, [address] [place] [address], [address], 3 08:04:30 Procedures None recorded. Surgeries None recorded. Imaging CT, abdomen + pelvis, w/ contrast 2022 023 tamar 43 [facility] [address] [place], [address], 3 20:20:36 Medication Orders None recorded. Patient TargetsNo targets recorded. Patient Instructions Encounter Date Encounter Id Patient Instructions Last Modified By Organization Details Last Modified Time 11/16/2022 [id number] abdominal pain: care instructions [email or web address] Not available [...] underlying cause of complaints. Patient and responsible democrat were given information regarding the discharge instructions [...] Address Organization Details Last Updated DateTime 3 19507.2 9 g 78 /min 16 /min 98 % 98 % 97.8 [degF] 26.9 kg/m2 182.88 cm 142 mm[Hg] 70 mm[Hg] Theresa Zavaleta, X-ray [facility]14 [place] 09:57:51 Social History None recorded. Functional Status None recorded. Mental Status None recorded. Family History Nothing Reported. Medical History No medical history recorded. Past Encounters Encounter ID Performer Location Encounter Start Date Encounter Closed Date Diagnosis/Indication Diagnosis SNOMED-CT Code Diagnosis ICD10 Code Diagnosis Note [id number] KETAN CARROLL NP [facility] [address] [place] [phone] 11/16/2022 09:35:47 11/16/2022 11:12:51 Hernia of anterior abdominal wall 152499033 K43.9 Health Concerns Section Related Observation LastModified by Organization Detai ls LastModified Time None Recorded Concern Status LastModified by Organization Details LastModified Time None Recorded Advance Directives Directive None Recorded Payers Insurance Date Sequence Insurance Name Policy Number Policy Agustin Covered Member ID Agustin Member ID Guarantor Name 12/17/2022 2 [place] [address] Bulmaro Marxty [id number] Bulmaro Porter 12/17/2022 2 [place] Bulmaro Porter 11/16/2022 1 [place] Bulmaro Reardon Francisco Jty [id number] Bulmaro Porter Notes Date Note Type [...] when leaning forward. KETAN CARROLL NP [address] [place], [address], [address] 11/16/2022 10:11:50
[2025-01-11 09:57] VITALS: BMI 26.6
[2025-02-11] VITALS (12 sets, daily range): BP systolic 133–176; BP diastolic 70–91; PULSE 73–80; RESP 16–18; TEMP 36.5–36.7; O2SAT 94–98; BMI 26.0
[2025-02-11] MEDS: Lactated Ringers 1,000 ML 100 ML IVCONT (10:09)
--- NOTE | 2025-02-11 12:10 | HO.ANESPROP2 ---
Documented by User: Mayelin Sargent NP 02/07/25 15:19 HPI - Anesthesia Eval Consult details Narrative: 79yo M for Right Shoulder Arthroscopy,distal clavical excision,acromioplasty,rotator cuff repairm Medically optimized per [facility] Active Problems Active Problems: All Active Problems Rotator cuff insufficiency of right shoulder (Acute) Past Medical History Medical History Hx of fracture of humerus History of headache Arthritis GERD (gastroesophageal reflux disease) Hiatal hernia Hiccups Tubular adenoma Right wrist fracture Right shoulder pain Polyclonal gammopathy Peripheral neuropathy Palpitations Osteoarthritis Numbness Neck pain Left inguinal hernia Kidney lesion [place] light chain disease BPH (benign prostatic hyperplasia) Gait disorder Ankle fracture, right Elevated blood pressure reading without diagnosis of hypertension Chronic pain in left shoulder Cervical disc disease Carpal tunnel syndrome Aortic atherosclerosis Alcohol use Abnormal liver function tests Surgical History Surgical History History of surgery on right wrist S/P epidural steroid injection History of ankle surgery History of esophagogastroduodenoscopy (EGD) Hx of tonsillectomy H/O colonoscopy Hx of carpal tunnel repair S/P laminectomy S/P bilateral inguinal hernia repair Hx of repair of left rotator cuff Social History Social History Are you a primary manager home healthcare to a significant other at home: No Do you presently have visiting nurse or other home services: No Patient Tobacco Use Status: Never used Tobacco Use of substances other than those prescribed or required for medical reasons: No Have you been hit, kicked, punched, or otherwise hurt by someone within the past year? If so, by whom?: No Are you DNR?: No Advance Directives: No Advance Directives Information Provided: Yes Advance Directives on File: No Poor oral hygiene: Yes Meds Allergies Allergy/AdvReac Type Severity Reaction Status Date / Time No Known Allergies Allergy Verified 02/11/25 10:20 Home Medications ?Medication ?Instructions ?Recorded ?Confirmed ?Last Taken ?Type omeprazole 20 mg capsule,delayed 20 mg PO BID PRN Acid Reflux 01/10/25 01/11/25 Unknown History release tizanidine 4 mg capsule 4 mg PO BEDTIME PRN Muscle Spasm 01/10/25 01/11/25 Unknown History acetaminophen 650 mg 650 mg PO Q12H PRN Pain 01/11/25 01/11/25 Unknown History tablet,extended release clindamycin phosphate 1 % lotion 1 appl topical BID 01/11/25 01/11/25 Unknown History ibuprofen 200 mg tablet 400 mg PO Q6H PRN Pain 01/11/25 01/11/25 02/04/25 History turmeric 400 mg capsule 400 mg PO DAILY 01/11/25 01/11/25 02/04/25 History Exam Height,Weight and Vital Signs: Height 6 ft Weight 88.904 kg Pertinent Lab Results Pertinent Lab Results: Lab Results Test Name Test Result Date/Time WBC6.7 x10E3/uL01/12/2025 08:31 EDT RBC4.37001/12/2025 08:31 EDT Hgb13.7 Gm/dL01/12/2025 08:31 EDT Hct42.4 %01/12/2025 08:31 EDT MCV97 fL01/12/2025 08:31 EDT MCH31.4 pg01/12/2025 08:31 EDT MCHC32.3 Gm/dL01/12/2025 08:31 EDT Platelet Ddsvv460 x10E3/uL01/12/2025 08:31 EDT RDW11.7 %01/12/2025 08:31 EDT Dwnddo360 mmol/L01/12/2025 08:31 EDT Potassium4.4 mmol/L01/12/2025 08:31 EDT Ahhakywg010 mmol/L01/12/2025 08:31 EDT Bicarbonate Level21 mmol/L01/12/2025 08:31 EDT Anion Gap17.0 mmol/L01/12/2025 08:31 EDT Glucose Level84 mg/dL01/12/2025 08:31 EDT Hemoglobin A1C (Monitoring)5.3 %01/12/2025 08:31 EDT BUN17 mg/dL01/12/2025 08:31 EDT Creatinine-Blood0.80 mg/dL01/12/2025 08:31 EDT Estimated GFR Mumljszbou39 ML/MIN/1.73 M201/12/2025 08:31 EDT Calcium9.6 mg/dL01/12/2025 08:31 EDT Protein, Total6.5 Gm/dL01/12/2025 08:31 EDT Albumin4.2 Gm/dL01/12/2025 08:31 EDT Alkaline Riontbgadmb99 IU/L01/12/2025 08:31 EDT AST (SGOT)36 IU/L01/12/2025 08:31 EDT ALT (SGPT)36 IU/L01/12/2025 08:31 EDT Bilirubin, Total0.5 mg/dL01/12/2025 08:31 EDT Bilirubin, Direct0.17 mg/dL01/12/2025 08:31 EDT BUN/Creat Npzbh356501/12/2025 08:31 EDT Narrative Narrative: EKG 01/2025 Ventricular Rate: 70 ?BPM Atrial Rate: 70 ?BPM P-R Interval: 224 ?ms QRS Duration: 104 ?ms Q-T Interval: 406 ?ms QTC Calculation(Bazett): 438 ?ms P [place] [employer]: 64 ?degrees R [place] [employer]: 42 ?degrees T [place] [employer]: 39 ?degrees Sinus rhythm with 1st degree A-V block Otherwise normal ECG When compared with ECG of 23-May-2024 08:18, No significant change was found Confirmed by PETR MORALES ([id number]) on 01/14/2025 12:53:02 PM?[1] Abdomen MRI 2021 Vascular structures: Abdominal aorta and Inferior vena cava are normal in caliber and contour with expected vascular flow-voids and enhancement. Large caliber arteries and veins demonstrate normal flow-voids. 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 BPH (benign prostatic hyperplasia) Gait disorder Ankle fracture, right Elevated blood pressure reading without diagnosis of hypertension Chronic pain in left shoulder Cervical disc disease Carpal tunnel syndrome Aortic atherosclerosis Alcohol use Abnormal liver function tests Family History Family history of problems with anesthesia: No Surgical History Surgical History History of surgery on right wrist S/P epidural steroid injection History of ankle surgery History of esophagogastroduodenoscopy (EGD) Hx of tonsillectomy H/O colonoscopy Hx of carpal tunnel repair S/P laminectomy S/P bilateral inguinal hernia repair Hx of repair of left rotator cuff History of Problems with Anesthesia: No Social History Social History Are you a primary manager home healthcare to a significant other at home: No Do you presently have visiting nurse or other home services: No Patient Tobacco Use Status: Never used Tobacco Use of substances other than those prescribed or required for medical reasons: No Have you been hit, kicked, punched, or otherwise hurt by someone within the past year? If so, by whom?: No Are you DNR?: No Advance Directives: No Advance Directives Information Provided: Yes Advance Directives on File: No Poor oral hygiene: Yes Meds Allergies Allergy/AdvReac Type Severity Reaction Status Date / Time No Known Allergies Allergy Verified 02/11/25 10:20 Home Medications ?Medication ?Instructions ?Recorded ?Confirmed ?Last Taken ?Type omeprazole 20 mg capsule,delayed 20 mg PO BID PRN Acid Reflux 01/10/25 01/11/25 Unknown History release tizanidine 4 mg capsule 4 mg PO BEDTIME PRN Muscle Spasm 01/10/25 01/11/25 Unknown History acetaminophen 650 mg 650 mg PO Q12H PRN Pain 01/11/25 01/11/25 Unknown History tablet,extended release clindamycin phosphate 1 % lotion 1 appl topical BID 01/11/25 01/11/25 Unknown History ibuprofen 200 mg tablet 400 mg PO Q6H PRN Pain 01/11/25 01/11/25 02/04/25 History turmeric 400 mg capsule 400 mg PO DAILY 01/11/25 01/11/25 02/04/25 History Exam Exam Date and Time: 02/11/25 1210 Height,Weight and Vital Signs: Height 6 ft Weight 88.904 kg Vital Signs Temperature 98.1 F 02/11/25 10:15 Pulse Rate 80 02/11/25 10:15 Respiratory Rate 18 02/11/25 10:15 Blood Pressure 176/76 H 02/11/25 10:15 Pulse Oximetry 98 02/11/25 10:15 Oxygen Delivery Method Room Air 02/11/25 10:15 Temperature 98.1 F 02/11/25 10:15 Pulse Rate 80 02/11/25 10:15 Respiratory Rate 18 02/11/25 10:15 Blood Pressure 135/74 02/11/25 10:44 Pulse Oximetry 98 02/11/25 10:15 Oxygen Delivery Method Room Air 02/11/25 10:15 Airway Mallampati Class: II TM Dist: <=3cm Neck ROM: Limited Loose/Missing/Broken Teeth: No (patient denies any loose or broken teeth) Heart: S1S2 Lungs: CTAB Assessment and Plan Assessment Anesthesia Assessment: Anesthesia Plan Discussed and Chart Reviewed Final Anesthetic Review Family History of Problems with Anesthesia: No History of Problems with Anesthesia: No NPO: Yes ASA Class: II Final Preanesthetic Review: No Changes in Pt Med Stat, Meds/Allgs Chart Reviewed, Consent Obtained/Reviewed and Anes Risks/Benef Reviewed Patient Risk: Low Procedure Risk: Intermediate Anesthetic Plan Anesthetic Plan: GA, Regional Block (right brachial plexus block) and Agree w/ Assess. and Plan Disposition: Standard PACU
[2025-02-11] MEDS: ceFAZolin Sodium/Dextrose,Iso 2 GM/50 ML PIGGYBACK IV (13:00)
[2025-02-11] MEDS: Acetaminophen 1,000 MG/100 ML PIGGYBACK 400 MG IV (14:00)
--- NOTE | 2025-02-11 14:48 | P.BOP_ITS ---
Brief Operative Note Date of Service: 02/11/25 Pre-op diagnosis: Right shoulder impingement syndrome, right shoulder acromioclavicular joint arthritis, right shoulder rotator cuff tear Post-op diagnosis: same Procedure: Right shoulder arthroscopic distal clavicle excision, right shoulder arthroscopic acromioplasty, right shoulder mini open rotator cuff repair Implants: [employer] Twinfix anchor with #2 Ultrabraid suture Surgeon: Shalom Lee MD Anesthesia: GETA and regional Was an Stagecraft Professor used for this Procedure?: No Estimated blood loss (mL): 20 Pathology: none sent Condition: stable Disposition: PACU
--- NOTE | 2025-02-11 14:49 | P.OP_ITS ---
Operative Note Operative Note Date of Service: 02/11/25 Narrative: After the patient was identified as Bulmaro Porter and his right shoulder was initialed by myself the patient was brought to the holding area where a right shoulder interscalene regional block was performed by the anesthesiologist in routine fashion. The patient was then brought to the operating room where general anesthesia was induced by the anesthesiologist in routine fashion. The patient was given 2 g of IV Ancef preoperatively for infection prophylaxis. Examination under anesthesia of the patient's right shoulder showed full passive range of motion of the patient's right shoulder when compared to the left. The patient was gently positioned in the beach chair position with all bony prominences well padded. The patient's right shoulder region and upper extremity were prepped and draped in sterile fashion. A formal time-out was completed. A #11 scalpel blade was used to make a posterior portal 2 cm inferior and 1 cm medial to the posterolateral corner of the acromion. Blunt trocar technique was used to enter the glenohumeral joint in routine fashion. An anterior portal was made just lateral to the coracoid process after proper positioning was confirmed using a spinal needle. Diagnostic arthroscopy showed minimal degenerative changes of the glenoid and humeral head articular surfaces. There was a full-thickness tear of the supraspinatus tendon. There was no evidence of injury to the biceps tendon or its insertion onto the glenoid. There was no inflammation of the anterior joint capsule. The arthroscope was then placed from the posterior portal into the subacromial space. A lateral portal was made 2 fingerbreadths lateral to the anterior lateral corner of the acromion. The ArthroCare Wand was used to ablate soft tissues along the undersurface of the acromion as well as to excise the coracoacromial ligament. There was a sharp spur along the undersurface of the acromion which was removed using the hooded bur. The arthroscope was then placed into the lateral portal and the acromioplasty was completed with the bur in the posterior portal using the posterior aspect of the acromion as a cutting block. The ArthroCare Wand was then brought in through the anterior portal and was used to ablate soft tissues along the acromioclavicular joint and distal clavicle. The posterior and superior ligamentous structures were left intact. A distal clavicle excision of 8 mm was performed using the hooded bur. Any remaining bursal tissue was removed using the arthroscopic shaver. The subacromial space was irrigated and then drained. All arthroscopic instruments were removed. Sterile gloves were changed and the shoulder was once again prepped with Betadine. A #15 scalpel blade was used to extend the lateral portal to the lateral edge of the acromion. The subacromial tissues were dissected using electrocautery down to the superficial deltoid fascia. The trocar split in the anterior raphe of the deltoid was then extended to the lateral edge of the acromion using elec trocautery and curved Dodd scissors. Any remaining bursal tissue was removed using curved Dodd scissors. Subacromial and subdeltoid adhesions were bluntly dissected. The undersurface of the acromion was palpated and it was smooth. A #2 Ethibond tag suture was placed into the supraspinatus tendon. The posterior half of the supraspinatus tendon could be mobilized to its insertion point on the greater tuberosity. The anterior half of the supraspinatus tendon could only be mobilized to just medial of the articular cartilage of the humeral head. The wound was irrigated with copious amounts of normal saline solution. One suture anchor was placed into the greater tuberosity in routine fashion. The rotator cuff repair was then performed using horizontal mattress sutures. The wound was irrigated with copious amounts of normal saline solution. The superficial and deep deltoid fascia were closed with #1 Vicryl [id number] interrupted suture. The wound was once again irrigated. The subcutaneous tissues were closed with 2-0 Vicryl interrupted suture. The skin was closed with 3-0 Prolene subcuticular suture and Steri-Strips. The anterior and posterior portals were closed with 3-0 nylon interrupted suture. Dry sterile dressing was placed over all incisions. The patient's right upper extremity was placed into a sling. The patient was awoken and extubated in the operating room. The patient was transferred to the recovery room in stable condition.
[2025-02-11] MEDS: cefTRIAXone sodium 1 GM VIAL IVPUSH (15:20)
== END 2025-02-11 16:27 | disposition home or self-care (01) ==
PROVIDERS: PCP Internal Medicine; Visit Provider Orthopaedic Surgery
PROC: (CPT 23412; principal; 2025-02-11 12:00)
DX: M75.111 Incomplete rotator cuff tear or rupture of right shoulder, not specified as traumatic (principal); M75.41 Impingement syndrome of right shoulder; M17.11 Unilateral primary osteoarthritis, right knee; M25.511 Pain in right shoulder; M25.311 Other instability, right shoulder; Z79.1 Long term (current) use of non-steroidal anti-inflammatories (NSAID); Z79.899 Other long term (current) drug therapy; Z98.890 Other specified postprocedural states
CPT/HCPCS: 23412; 29824; 29826; C1713; J0131; J0171; J0690; J0696; J1100; J2003; J2250; J2371; J2405; J2704

== ENCOUNTER → 2025-02-11 09:57 | Outpatient (BNV) | payer MEDICARE, BC, SELFPAY | PROVIDERS: PCP Internal Medicine; Visit Provider Orthopaedic Surgery | DX: M75.101 Unspecified rotator cuff tear or rupture of right shoulder, not specified as traumatic (principal); M75.41 Impingement syndrome of right shoulder; M19.011 Primary osteoarthritis, right shoulder | CPT/HCPCS: 23412; 29824 ==

== ENCOUNTER 2025-02-26 11:43 | Outpatient (AMB) | payer MEDICARE, BC, SELFPAY ==
--- OUTSIDE RECORDS SUMMARY | 2025-02-23 23:59 | XMS_ITS | Continuity of Care Document ---
Author Organization [facility] Primary [facility] [address] Address [address] [place] [address]- Care Team Providers Care Trust Manager Name Role Phone Russell HILL, Zoey Amaya Primary Care Physician Encounter [facility] Date(s): 01/24/25 - 02/23/25 [facility] [address], [place] [address] Encounter Type: Triage Allergies, Adverse [...] influenza virus vaccine, inactivated 06/19/12 Tai rded [id number] 12y+ bivalent booster vax 05/24/22 Recorded SARS-CoV-2 [...] Recorded pneumococcal 23-valent vaccine 07/11/12 Recorded Medications baclofen 10 mg oral tablet 5 mg, 0.5, tablet, By Mouth, 3 times a day, May take a whole tablet 3 times daily prn delmer, # 21tablet, Refills 0, Tot. Refills 0, Maintenance, 12/03/24 1:48:00 PM EDT, Route to Pharmacy Electronically, [facility] # [id number], Partial fill upon patient request if the prescription is for a schedule II opioid drug., 182.9, cm, 12/03/24 13:23:00 EDT, Height, 88.8, kg, 10/15/24 16:35:00 EST, Dry Weight Start Date: 12/03/24 Stop Date: 12/17/24 Status: Ordered Quantity: 21.0 Unit: tablet Repeat number: 1 Colace sodium 100 mg oral capsule 100 mg, 1, capsule, By Mouth, 2 times a day, # 20 capsule, Refills 0, Tot. Refills 0, Maintenance, 06/06/24 11:49:00 AM EDT, [id number] Partial fill upon patient request if [...] Refills, Maintenance, 06/12/24 3:25:00 PMEDT, EC Tablet, [facility]/pharmacy #[id number], Partial fill upon patient request [...] 11:49:00 AM EDT, Route to Pharmacy Electronically, [facility]/pharmacy #[id number], Partial fill upon patient request [...] BP without diagnosis of hypertension Confirmed Active FHx: type 1 diabetes mellitus Confirmed Active FHx: stroke Confirmed Active FHx: cardiovascular disease Confirmed Active FHx: multiple sclerosis Confirmed Active Right wrist fracture Confirmed Active Fracture of right ankle Confirmed Active S/P laminectomy Confirmed Active History of BPH Confirmed Active Hiccups Confirmed Active S/P bilateral inguinal hernia repair Confirmed Active H/O rotator cuff surgery Confirmed Active [place]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 Kidney lesion [...] Safety Implantable Status Assigning Authority Unknown Unknown [id number] Unknown 06/11/27 Unknown Unknown Active Unknown Patient Care team information Care Team Personnel Name: Russell HILL, Zoey Amaya Position: [facility] Physician - Primary Care Member Role: PCP Address: [address] [place] [id number]- Telecom: Care Team Related Persons Name: MONETGHAZAL Insurance Providers Guarantor name: HADLEY HEALY Health Plan Information #: 1 Payer: LYUDMILA: ADVANCED PAYMENT EXAM Payer Identifier: NA Member Number: [id number] Group Number: NA Subscriber Identifier: [id number] Relationship to Subscriber: self Coverage Type: Other specified but not otherwise classifiable (includes Hospice - Unspecified plan) Coverage Verification Date: NA Telecom: NA Address: Health Plan Information #: 2 Payer: [facility] Payer Identifier: NA Member Number: [id number] Group Number: [id number] Subscriber Identifier: [id number] Relationship to Subscriber: self Coverage Type: Medicare Other Coverage Verification Date: NA Telecom: NA Address:
[2025-02-26 11:59] VITALS: BMI 25.9
--- NOTE | 2025-02-26 11:59 | A.OFFVIS_ITS ---
Vital Signs 02/26/25 11:59 Height 6 ft Weight 191 lb BMI 25.9 Intake Visit Reasons: PO RT RTC 02/11/25 Intake Note: Bulmaro is a 79 year old left hand dominant male who presents for his first post-operative visit after undergoing a right rotator cuff repair on 02/11/25. He reports mild intermittent discomfort in his right shoulder. He has been resting his shoulder as per my instructions. Allergies No Known Allergies Allergy (Verified 02/11/25 10:20) Medication List - Last Reconciled 02/26/25 by Shalom Lee MD acetaminophen ER 650 mg PO Q12H PRN clindamycin phosphate 1% 1 appl topical BID ibuprofen 400 mg PO Q6H PRN omeprazole 20 mg PO BID PRN oxycodone 10 mg (2 x 5 mg) PO Q4H PRN tizanidine 4 mg PO BEDTIME PRN turmeric 400 mg PO DAILY PFSH Medical History Hx of fracture of humerus History of headache Arthritis GERD (gastroesophageal reflux disease) Hiatal hernia Hiccups Tubular adenoma Right wrist fracture Right shoulder pain Polyclonal gammopathy Peripheral neuropathy Palpitations Osteoarthritis Numbness Neck pain Left inguinal hernia Kidney lesion [place] light chain disease BPH (benign prostatic hyperplasia) Gait disorder Ankle fracture, right Elevated blood pressure reading without diagnosis of hypertension Chronic pain in left shoulder Cervical disc disease Carpal tunnel syndrome Aortic atherosclerosis Alcohol use Abnormal liver function tests Surgical History History of surgery on right wrist S/P epidural steroid injection History of ankle surgery History of esophagogastroduodenoscopy (EGD) Hx of tonsillectomy H/O colonoscopy Hx of carpal tunnel repair S/P laminectomy S/P bilateral inguinal hernia repair Hx of repair of left rotator cuff Social History Are you a primary memory care director to a significant other at home: No Do you presently have visiting nurse or other home services: No Patient Tobacco Use Status: Never used Tobacco Physical Exam Vital Signs: BMI result Body Mass Index 25.9 Extrem Other: Right shoulder examination shows that the surgical incisions are healing well, no erythema, mild discomfort with gentle passive range of motion Assessment & Plan Assessment & Plan (1) Rotator cuff insufficiency of right shoulder: Code(s): M25.311 - Other instability, right shoulder Category: Medical Plan Mr. Porter is doing very well after undergoing right shoulder rotator cuff repair surgery on 04/13/2025. His sutures were removed and Steri-Strips placed over his incisions. I did give him a prescription to go to formal physical therapy for passive range of motion exercises only. I will hold off on active lifting until he is 8 weeks out from surgery. I will see him back at that time. Feel free to call me at any time should questions regarding his orthopedic management arise. Orders: Orders PT Evaluation and Treatment Today M25.311 - Other instability, right shoulder Coding Level of Care Code Global (70550) Diagnoses Rotator cuff insufficiency of right shoulder M25.311
--- OUTSIDE RECORDS SUMMARY | 2025-02-26 13:03 | XMS_ITS | Continuity of Care Document ---
Author Organization [facility]. If a dditional information is needed, contact Health Information Management at [phone] Address [address] [place] [address] Phone Care Team Providers Care Bricklayer Helper Name Role Phone Unavailable Unavailable Unavailable Unavailable [...]
--- OUTSIDE RECORDS SUMMARY | 2025-02-26 13:04 | XMS_ITS | Encounter Summary ---
Author Organization [facility] Address [address] [place] [address] Care Team Providers Care Nurse'S Companion Name Role Phone Danielle Hermosillo MD Primary Care Provider Chaka Dumas PA-C Primary Care Provider [facility], Pcp Primary Care Provider Unavailabl e Reason for Visit * Reason Onset Date Comments LAB WORK 08/22/2018 Encounter Details Date Type Department Care Team Description 08/22/2018 Telephone Adult Medicine [address] [address] Danielle Hermosillo MD LAB WORK Social History Tobacco Use Types Packs/Day Years Used Date Smoking Tobacco: Former Cigarettes 0.5 2 Smokeless Tobacco: Never Alcohol Use Standard Drinks/Week Comments Yes 0 (1 standard drink = 0.6 oz pur e alcohol) beer 2 daily Sex Assigned at Date Recorded Male 12/10/2019 9:53 AM E DT documented as of this encounter Miscellaneous Notes * Telephone Encounter - Meena Hobbs M.A. - 08/22/2018 11:37 AM EST The pt was called by the BSR to reschedule physical appt. Was this done? * Telephone Encounter - Montez Mccloud - 08/22/2018 11:14 AM EST Patient would like to have lab work put in before his physical appointment documented in this encounter Plan of Treatment Not on file documented as of this encounter Visit Diagnoses Not on filedocumented in this encounter Care Teams Nurse'S Companion Relationship Specialty Start Date End Date Danielle Hermosillo MD PCP - General Internal Medicine 09/17/16 03/15/21 Chaka Barnes PA-C PCP - General Med/Peds 03/16/21 09/13/21 [facility], Pcp PCP - General Internal Medicine 09/14/21 documented as of this encounter
--- OUTSIDE RECORDS SUMMARY | 2025-02-26 13:04 | XMS_ITS | Data Portability ---
Author Organization [place] - [facility] [place], [facility] Address [address] [place] [address] Assessment No assessment recorded. Plan of Treatment Reminders Order Date Submit Date Provider Last Modified By Organization Details Last Modified Time Details Appointments None recorded. Lab CBC w/ auto diff 2022 023 Chipolo [facility], [address] [place] [address], [address], 3 12:59:56 CMP, serum or plasma 2022 023 Chipolo [facility], [address] [place] [address], [address], 3 12:59:56 Referral general surgeon referral 2022 023 [email or web address] [address] [place], [address] [facility] Ryan [facility], [place], [address], 3 08:04:30 Procedures None recorded. Surgeries None recorded. Imaging CT, abdomen + pelvis, w/ contrast 2022 023 tamar [facility] [place] [facility] [place] [address] [place], [address], 3 20:20:36 Medication Orders None recorded. Patient TargetsNo targets recorded. Patient Instructions Encounter Date Encounter Id Patient Instructions Last Modified By Organization Details Last Modified Time 11/16/2022 [id number] abdominal pain: care instructions [email or web address] Not available 11/16/2022 10:11:24 hernia: care instructions [...] patients voiced full understand prior to discharge. [email or web address] Not available 11/16/2022 10:11:07 Reason for Referral [...] Body mass index (BMI) Body height Systolic And Diastolic Provider Name and Address Organization Details Last Updated DateTime 3 61324.2 9 g 78 /min 16 /min 98 % 98 % 97.8 [degF] 26.9 kg/m2 182.88 cm 142/70 mm[Hg] Theresa Zavaleta, X-ray [facility] [place] 09:57:51 Social History None recorded. Functional Status None recorded. Mental Status None recorded. Family History Nothing Reported. Medical History No medical history recorded. Past Encounters Encounter ID Performer Location Encounter Start Date Encounter Closed Date Diagnosis/Indication Diagnosis SNOMED-CT Code Diagnosis ICD10 Code Diagnosis Note [id number] KETAN CARROLL NP [facility] [address] [place] [id number] 11/16/2022 09:35:47 11/16/2022 11:12:51 Hernia of anterior abdominal wall 799517798 K43.9 Health Concerns Section Related Observation LastModified by Organization Detai ls LastModified Time None Recorded Concern Status LastModified by Organization Details LastModified Time None Recorded Advance Directives Directive None Recorded Payers Insurance Date Sequence Insurance Name Policy Number Policy Agustin Covered Member ID Agustin Member ID Guarantor Name 12/17/2022 2 [place] 113 Bulmaro Marxty [id number] Bulmaro Porter 12/17/2022 2 [place] Bulmaro Porter 11/16/2022 1 [place] Bulmaro Reardon Francisco Jty [id number] Bulmaro Porter Notes Date Note Type [...] when leaning forward. KETAN CARROLL NP [address] [place], [address], [address] 11/16/2022 10:11:50
--- OUTSIDE RECORDS SUMMARY | 2025-02-26 13:04 | XMS_ITS | Clinical Summary ---
Author Organization [facility] Address [address] [place] [address] Care Team Providers Care Locomotive Crane Operator Helper Name Role Phone Unavailable Primary Care Provider Unavailabl e Surgical History Surgery Date Site/Laterality Comments OTHER SURGICAL HISTORY 06/15 PROCEDURE: [place] OPEN TREATMENT RADIAL SHAFT FRACTURE; COMMENT: at [...] HISTORICAL ROTATOR CUFF REPAIR; COMMENT: Dr. Lee, [facility] Ortho, infraspinatus tear, spur TONSILLECTOMY PROCEDURE: HISTORICAL [...] Due Date Last Done Comments RSV Immunization Adult Patients (1 - 1-dose 75+ series) 2021 COVID-19 Vaccine ( season) 2024 07/01/2021, 11/24/2020, 11/03/2020 Cholesterol Screening (Lipid Panel) 06/05/2024 Depression Screening 06/05/2024 Falls Risk Assessment 06/05/2024 Hepatitis C Screening 06/05/2024 Social Influencers of Health Screening 06/05/2024 Influenza Vaccine (#1) 2025 , 04/18/2020, 07/23/2019, Additional history exists DTaP,Tdap,and Td Vaccines (4 - Td or [...] age to complete this topic Meningococcal B Vaccine Aged Out No l onger eligible based on patient's age to complete this topic RSV Immunization Patients Under 20 months Aged Out No longer eligible based on patient's age to complete this topic Varicella Vaccines Aged Out No longer eligible based on patient's age to complete this topic Advance Directives Documents on File Type Date Recorded Patient Pharmacologist Expl anation Health Care Decision (hx) 07/19/2016 AD LIZBET DIRECTIVE
--- OUTSIDE RECORDS SUMMARY | 2025-02-26 13:04 | XMS_ITS | Patient Health Record ---
Author Organization [facility] Address [address] [place] [address] Care Team Providers Care Folding Rules Printing Machine Operator Name Role Phone Dr Danielle Hermosillo Primary Care Provider Pippa leleanneAlyce Molina Unavailable [phone] Reason For Referral No Information Medications Medication SIG (Take, Route, Frequency, Duration) Notes Start Date End Date Status Fish Oil 1000 MG Orally Act priya Naproxen Active Kxokgo-Gbkixirub-BZM Complex 1500 MG Orally Daily Active Social History Tobacco Use: Social History Observation Description Date Details (start date - stop date) Former Smoker NA - NA Tobacco Use/Smoking Question Answer Notes Are you a: former smoker When did you stop smoking? 1970 Additional Findings: Tobacco User Light cigarett e smoker ((1-9 cigs/day) Additional Findings: Tobacco Non-User Current no n-smoker Tobacco use other than smoking: Question Answer Notes Are you an other tobacco user? No Plan Of Treatment Pending Test Test Name Order Date X ray : Foot, left 3V 01/24/2020 Insurance Providers Payer Name Payer Address Payer Phone Subscriber Number Group Number Insured Name Patient Relationship to Insured Coverage Start Date Coverage End Date Medicare National Govt Svcs Inc [address] [place] [address] [id number] Bulmaro Porter Self - patient is the insured [facility] [address] [place] [address] [id number] Bulmaro Porter Self - patient is the insured Medical (General) History Medical History History ICD Code Arthritis Broken bones Osteoporosis Measles Mumps Chicken pox Arthropathy R ankle Lazy eye Posterior vitreous detachment Chronic allergic conjunctivitis Visual distortions and entoptic phenomen a Neck pain Benign prostatic hyperplasia [place] Disease Actinic keratoses Squamous Cell Carcinoma Surgical History Surgery Date(Month/Year) hernia 1960/1998 Bone Spurs 1981 Complete rotator cuff repair, Left 12/12 Radius fracture 2000 Narrowing of cervical spine 12/23/2016
== END 2025-02-26 12:07 | disposition home or self-care (01) ==
LOC: HO.HOS 11:44
PROVIDERS: PCP Internal Medicine; Visit Provider Orthopaedic Surgery
DX: M25.311 Other instability, right shoulder (principal)
CPT/HCPCS: 99024

== ENCOUNTER → 2025-02-26 11:43 | Outpatient (BNVA) | payer MEDICARE, BC, SELFPAY | PROVIDERS: PCP Internal Medicine; Visit Provider Orthopaedic Surgery | DX: M25.311 Other instability, right shoulder (principal) | CPT/HCPCS: 99212 ==

== ENCOUNTER 2025-04-10 11:49 | Outpatient (AMB) | payer MEDICARE, BC, SELFPAY ==
--- OUTSIDE RECORDS SUMMARY | 2016-06-15 | XMS_ITS | Encounter Summary ---
Author Organization [facility] Address [address] [place] [phone] Phone Care Team Providers Care Screw Supervisor Name Role Phone Unavailable Primary Care Provider Unavailabl e Reason for Visit * MRI/CAT Scan - Closed Specialty Diagnoses / Procedures Referred By Cesar t Referred To Contact Procedures MRI Outside Upper Extremity (No Interpretation) Salvador Lee MD [address] [place] [address] Phone: tel: fax: [email or web address] Referral ID Status Reason Start Date Expiration Date Visits Re quested Visits Authorized [id number] Closed 03/15/2017 03/15/2018 1 1 Encounter Details Date Type Department Care Team (Late st Contact Info) Description 06/15/2016 Hospital Encounter [facility] General Imaging [address] [place] [phone] Salvador Lee MD [address] [place], [place] [phone] [email or web address] Social History Tobacco Use Types Packs/Day Years [...] (No Interpretation) (06/15/2016 12:00 AM EDT) Narrative [facility] IMG INTERFACES - 03/15/2017 2:28 PM EDT This study is for PACS storage only and not for interpretation. us Salvador Lee MD IMG OUTSIDE IMAGING W/OUT INTERP RETATION Final Result [facility] IMG INTERFACES documented in this encounter Visit Diagnoses Not on filedocumented in this encounter Additional Source Comments The information contained in this document represents components of the legal health record. It is not the complete legal health record.[facility]
--- OUTSIDE RECORDS SUMMARY | 2025-04-05 23:59 | XMS_ITS | Continuity of Care Document ---
Author Organization [facility] Primary [facility] Address [address] [place] [address]- Care Team Providers Care Search Engine Optimization Strategist Name Role Phone Russell HILL, Zoey Amaya Primary Care Physician Encounter [facility] Date(s): 03/05/25 - 04/05/25 [facility] [address] [place], [place] [address] Attending Physician: Eric Orourke Encounter Type: Pre-OutPatient One Time Allergies, Adverse Reactions, Alerts No Known Allergies [...] influenza virus vaccine, inactivated 06/19/12 Tai rded [id number] 12y+ bivalent booster vax 05/24/22 Recorded SARS-CoV-2 [...] a whole tablet 3 times daily prn hiccups, # 21tablet, Refills 0, Tot. Refills 0, Maintenance, 12/03/24 1:48:00 PM EDT, Route to Pharmacy Electronically, [id number], Partial fill upon [...] 11:49:00 AM EDT, [id number] Partial fill upon patient request if [...] Refills, Maintenance, 06/12/24 3:25:00 PMEDT, EC Tablet, [facility]/pharmacy #[id number], Partial fill upon patient request [...] 11:49:00 AM EDT, Route to Pharmacy Electronically, [facility]/pharm[facility] #[id number], Partial fill upon patient request [...] Active H/O rotator cuff surgery Confirmed Active [place]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 Kidney lesion [...] Safety Implantable Status Assigning Authority Unknown Unknown [id number] Unknown 06/11/27 Unknown Unknown Active Unknown Patient Care team information Care Team Personnel Name: Russell HILL, Zoey Amaya Position: [facility] Physician - Primary Care Member Role: PCP Address: [address] [place] [address] Telecom: Care Team Related Persons Name: GHAZAL HEALY Insurance Providers Guarantor name: HADLEY HEALY Health Plan Information #: 1 Payer: MEDICARE B Payer Identifier: NA Member Number: [id number] Group Number: NA Subscriber Identifier: [id number] Relationship to Subscriber: self Coverage Type: NA Coverage Verification Date: NA Telecom: NA Address: Health Plan Information #: 2 Payer: [facility] Payer Identifier: NA Member Number: [id number] Group Number: [id number] Subscriber Identifier: [id number] Relationship to Subscriber: self Coverage Type: Medicare Other Coverage Verification Date: Telecom: Address:
--- OUTSIDE RECORDS SUMMARY | 2025-04-05 23:59 | XMS_ITS | Continuity of Care Document ---
Author Organization [facility] Primary [facility] Address [address] [place] [address]- Care Team Providers Care Structures Assembler Name Role Phone Russell HILL, Zoey Amaya Primary Care Physician Encounter [facility] Date(s): 03/06/25 - 04/05/25 [facility] [address] [place], [place] [address] Attending Physician: Hugh Dolan Admitting Physician: AdmHugh light Referring Physician: Admtr ArBrianda Encounter Type: Triage Allergies, Adverse Reactions, Alerts [...] influenza virus vaccine, inactivated 06/19/12 Tai rded [id number] 12y+ bivalent booster vax 05/24/22 Recorded SARS-CoV-2 [...] 1:48:00 PM EDT, Route to Pharmacy Electronically, [id number], Partial fill [...] 11:49:00 AM EDT, [id number] Partial fill upon patient request [...] Refills, Maintenance, 06/12/24 3:25:00 PMEDT, EC Tablet, [facility]/pharmacy #[id number], Partial fill upon patient request if [...] AM EDT, Route to Pharmacy Electronically, [facility]/pharmacy #[id number], Partial fill upon patient request if [...] Active H/O rotator cuff surgery Confirmed Active [place]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 Kidney lesion [...] Device Type Site Repair Hernia Inguinal Open Carmen HILL, Jairo Lawrence 03/09/23 Un known Groin Left Device Identifier Serial Number Lot or Batch Number Manufacturing Date Expiration Date Distinct Identification Code MRI Safety Implantable Status Assigning Authority Unknown Unknown [id number] Unknown 06/11/27 Unknown Unknown Active Unknown Cardiology * Event Display: Non BH Cardiovascular Results Authored Date: Laboratory * Event Display: Non BH Lab Results Authored Date: * Event Display: Non BH Lab Results Authored Date: MR Spine * Event Display: MRI Spine Authored Date: Patient Care team information Care Team Personnel Name: Zoey Wells MD Position: [facility] Physician - Primary Care Member Role: PCP Address: [address] [place] [address] Telecom: Care Team Related Persons Name: GHAZAL HEALY Insurance Providers Guarantor name: HADLEY HEALY Health Plan Information #: 1 Payer: MEDICARE B Payer Identifier: NA Member Number: [id number] Group Number: NA Subscriber Identifier: [id number] Relationship to Subscriber: self Coverage Type: NA Coverage Verification Date: NA Telecom: NA Address: Health Plan Information #: 2 Payer: [employer] Payer Identifier: NA Member Number: [id number] Group Number: [id number] Subscriber Identifier: [id number] Relationship to Subscriber: self Coverage Type: Medicare Other Coverage Verification Date: NA Telecom: Address:
--- NOTE | 2025-04-10 11:52 | MHC.OFFVIS ---
Intake Visit Reasons: PO RT RTC 02/11/25 DR-follow up Intake Note: Bulmaro is a 79 year old male who presents with complaints of mild intermittent discomfort in his right shoulder after undergoing right shoulder rotator cuff repair surgery on 02/11/2025. He denies any fevers or chills. He continues to go to formal physical therapy. Allergies No Known Allergies Allergy (Verified 04/10/25 11:55) Medication List - Last Reviewed 04/10/25 by Sharmaine Rae acetaminophen ER 650 mg PO Q12H PRN clindamycin phosphate 1% 1 appl topical BID ibuprofen 400 mg PO Q6H PRN omeprazole 20 mg PO BID PRN tizanidine 4 mg PO BEDTIME PRN turmeric 400 mg PO DAILY PFSH Medical History Hx of fracture of humerus History of headache Arthritis GERD (gastroesophageal reflux disease) Hiatal hernia Hiccups Tubular adenoma Right wrist fracture Right shoulder pain Polyclonal gammopathy Peripheral neuropathy Palpitations Osteoarthritis Numbness Neck pain Left inguinal hernia Kidney lesion [place] light chain disease BPH (benign prostatic hyperplasia) Gait disorder Ankle fracture, right Elevated blood pressure reading without diagnosis of hypertension Chronic pain in left shoulder Cervical disc disease Carpal tunnel syndrome Aortic atherosclerosis Alcohol use Abnormal liver function tests Surgical History History of surgery on right wrist S/P epidural steroid injection History of ankle surgery History of esophagogastroduodenoscopy (EGD) Hx of tonsillectomy H/O colonoscopy Hx of carpal tunnel repair S/P laminectomy S/P bilateral inguinal hernia repair Hx of repair of left rotator cuff Social History Are you a primary medicare specialist to a significant other at home: No Do you presently have visiting nurse or other home services: No Patient Tobacco Use Status: Never used Tobacco Physical Exam Extrem Other: Right shoulder examination shows that the surgical incisions are well healed, no erythema, slightly decreased passive range of motion when compared to his left shoulder, minimal discomfort with resisted forward flexion, no discomfort with resisted internal or external rotation Assessment & Plan Assessment & Plan (1) Rotator cuff insufficiency of right shoulder: Code(s): M25.311 - Other instability, right shoulder Category: Medical Plan Mr. Porter continues to do well after undergoing right shoulder rotator cuff repair surgery on 02/11/2025. He will continue with his passive range of motion exercises. He can now begin gentle active range of motion exercises as well as gentle strengthening exercises as long as they do not cause him a significant increase in discomfort. The do's and don'ts of lifting were discussed at length with the patient. He will contact me prior to his follow-up appointment in 2 months should any questions or concerns arise. Feel free to call me at any time should questions regarding his orthopedic management arise. Orders: Orders PT Evaluation and Treatment Today M25.311 - Other instability, right shoulder Coding Level of Care Code Global (06200) Diagnoses Rotator cuff insufficiency of right shoulder M25.311
--- OUTSIDE RECORDS SUMMARY | 2025-04-10 12:40 | XMS_ITS | Encounter Summary ---
Author Organization [facility] Address [address] [place] [address] [place] [address] Phone Care Team Providers Care Pelletizer Tender Name Role Phone Danielle Hermosillo MD Primary Care Pro vider Encounter Details Date Type Department Care Team (Late st Contact Info) Description 03/15/2017 Procedure Pass [facility] [address] [place] [address] Social History Tobacco Use Types Packs/Day Years [...] on filedocumented in this encounter Care Teams Pelletizer Tender Relationship Specialty Start Date End Date Danielle Hermosillo MD [address] [place] [address] PCP - General Internal Medicine 01/20/17 documented as of this encounter Additional Source Comments The information contained in this document represents components of the legal health record. It is not the complete legal health record.[facility]
--- OUTSIDE RECORDS SUMMARY | 2025-04-10 12:40 | XMS_ITS | Encounter Summary ---
Author Organization [facility] Address [address] [place] [address] [place] [address] Phone Care Team Providers Care Rn Ostomy Name Role Phone Danielle Hermosillo MD Primary Care Pro vider Encounter Details Date Type Department Care Team (Late st Contact Info) Description 03/15/2017 Procedure Pass [facility] [address] [place] [address] Social History Tobacco Use Types Packs/Day Years [...] on filedocumented in this encounter Care Teams Rn Ostomy Relationship Specialty Start Date End Date Danielle Hermosillo MD [address] [place] [address] PCP - General Internal Medicine 01/20/17 documented as of this encounter Additional Source Comments The information contained in this document represents components of the legal health record. It is not the complete legal health record.[facility]
--- OUTSIDE RECORDS SUMMARY | 2025-04-10 12:40 | XMS_ITS | Encounter Summary ---
Author Organization [facility] Address [address] [place] [address] [place] [address] Phone Care Team Providers Care Metal Finisher Name Role Phone Danielle Hermosillo MD Primary Care Pro vider Encounter Details Date Type Department Care Team (Late st Contact Info) Description 03/15/2017 Procedure Pass [facility] [address] [place] [address] Social History Tobacco Use Types Packs/Day Years [...] on filedocumented in this encounter Care Teams Metal Finisher Relationship Specialty Start Date End Date Danielle Hermosillo MD [address] [place] [address] PCP - General Internal Medicine 01/20/17 documented as of this encounter Additional Source Comments The information contained in this document represents components of the legal health record. It is not the complete legal health record.[facility]
--- OUTSIDE RECORDS SUMMARY | 2025-04-10 12:40 | XMS_ITS | Clinical Summary ---
Author Organization [facility] Address [address] [place] [address] Phone Care Team Providers Care Treadle Cut Off Saw Operator Name Role Phone Danielle Hermosillo MD Primary [...] VACCINE (1 - 1-dose 75+ series) 2021 COVID-19 VACCINE (2 - season) 2024 11/03/2020 Adult Td,Tdap Booster 08/15/2030 [...] age to complete this topic MENINGOCOCCAL VACCINES (B) Aged Out N o longer eligible based on patient's age to complete this topic Medical Devices Not on file Insurance MEDICARE PART A & B [facility] MEDICARE PART A & B Member Subscriber Plan / Payer (Ef fective 2011-Present) Name:Bulmaro Porter Member ID:[id number] Relation to Subscriber:Self Name:Francisco JBulmaro morales Subscriber ID:[id number] Payer ID:[id number] Group ID:Not on file Type:Medicare Address: [employer] [address] [place] [id number] [facility] MEDICARE PART A & B [facility] MEDICARE PART A & B [facility] MEDICARE PART A & B [facility] MEDICARE PART A & B [facility] MEDICARE PART A & B [facility] MEDICARE PART A & B [facility] MEDICARE PART A & B [facility] Care Teams Treadle Cut Off Saw Operator Relationship Specialty Start Date End Date Danielle Hermosillo MD [address] [place] [address] PCP - General Internal Medicine 01/20/17 Additional Source Comments The information contained in this document represents components of the legal health record. It is not the complete legal health record.[facility]
--- OUTSIDE RECORDS SUMMARY | 2025-04-10 12:40 | XMS_ITS | Patient Health Record ---
Author Organization [facility] Address [address] [place] [address] Care Team Providers Care Collector Name Role Phone Dr Danielle Hermosillo Primary Care Provider Pippa leleanneAlyce Molina Unavailable [phone] Reason For Referral No Information Medications Medication SIG (Take, Route, Frequency, Duration) Notes Start Date End Date Status Fish Oil 1000 MG Orally Act priya Naproxen Active Rjqfgw-Annaoycve-JGB Complex 1500 MG Orally Daily Active Social [...] Medicare National Govt Svcs Inc [address] [place] [address] [id number] Bulmaro Porter Self - patient is the insured [facility] [address] [place] [address] [id number] Bulmaro Porter Self - patient is the [...]
--- OUTSIDE RECORDS SUMMARY | 2025-04-10 12:40 | XMS_ITS | Clinical Summary ---
Author Organization [facility] Address [address] [place] [address] Care Team Providers Care Sailmaker Name Role Phone Unavailable Primary Care Provider Unavailabl e Surgical History Surgery Date Site/Laterality Comments OTHER SURGICAL HISTORY 06/15 PROCEDURE: IN OPEN TREATMENT RADIAL SHAFT FRACTURE; COMMENT: at [...] HISTORICAL ROTATOR CUFF REPAIR; COMMENT: Dr. Lee, [facility] Ortho, infraspinatus tear, spur TONSILLECTOMY PROCEDURE: [...] 11/24/2020, 11/03/2020 Cholesterol Screening (Lipid Panel) 06/05/2024 Falls Risk Assessment 06/05/2024 Hepatitis C Screening 06/05/2024 Social Influencers of Health Screening 06/05/2024 Depression Screening 08/15/2024 Influenza Vaccine (#1) 2025 , 04/18/2020, 07/23/2019, [...] Documents on File Type Date Recorded Patient Aviation Ordnance Officer Expl anation Health Care Decision (hx) 07/19/2016 AD LIZBET DIRECTIVE
== END 2025-04-10 12:10 | disposition home or self-care (01) ==
LOC: HO.HOS 11:49
PROVIDERS: PCP Internal Medicine; Visit Provider Orthopaedic Surgery
DX: M25.311 Other instability, right shoulder (principal)
CPT/HCPCS: 99024

== ENCOUNTER → 2025-04-10 11:49 | Outpatient (BNVA) | payer MEDICARE, BC, SELFPAY | PROVIDERS: PCP Internal Medicine; Visit Provider Orthopaedic Surgery | DX: M25.311 Other instability, right shoulder (principal) | CPT/HCPCS: 99212 ==

== ENCOUNTER 2025-06-11 11:43 | Outpatient (AMB) | payer MEDICARE, BC, SELFPAY ==
--- OUTSIDE RECORDS SUMMARY | 2016-06-15 | XMS_ITS | Encounter Summary ---
Author Organization [facility] Address [address] [place] [phone] Phone Care Team Providers Care Ship Purser Name Role Phone Unavailable Primary Care Provider Unavailabl e Reason for Visit * MRI/CAT Scan - Closed Specialty Diagnoses / Procedures Referred By Cesar t Referred To Contact Procedures MRI Outside Upper Extremity (No Interpretation) Salvador Lee MD [address] [place] [address] Phone: tel: fax: [email or web address] Referral ID Status Reason Start Date Expiration Date Visits Re quested Visits Authorized [id number] Closed 03/15/2017 03/15/2018 1 1 Encounter Details Date Type Department Care Team ([facility] st Contact Info) Description 06/15/2016 Hospital Encounter [facility] General Imaging [address] [place] [phone] Salvador Lee MD [address] [place], [place] [phone] [email or web address] Social History Tobacco Use Types Packs/Day Years Used Date Smoking Tobacco: Never Assessed Education Answer Date Recorded Are you interested in more education? Not on kaleb e 12/10/2022 Are you concerned about learning? Not on file 12/10/2022 No 12/10/2022 No 12/10/2022 Digital Access Answer Date Recorded No 01/10/2023 No 01/10/2023 No 01/10/2023 Reliable internet access at home? Not on file 01/10/2023 Device with a working camera? Not on file Sex and Gender Information Value Date Recorded Sex Assigned at Not on file Legal Sex Male 10:19 AM EDT Gender Identity Not on file Sexual Orientation Not on file documented as of this encounter Plan of Treatment Not on file documented as of this encounter Procedures Procedure Name Priority Date/Time Associated Diagnosis Comments MRI UPPER EXTREMITY OUTSIDE (NO INTERPRETATION) Routine 06/15/2016 12:00 AM EDT documented in this encounter Results * MRI Outside Upper Extremity (No Interpretation) (06/15/2016 12:00 AM EDT) Narrative [facility] - 03/15/2017 2:28 PM EDT This study is for PACS storage only and not for interpretation. us Salvador Lee MD IMG OUTSIDE IMAGING W/OUT INTERP RETATION Final Result [facility] documented in this encounter Visit Diagnoses Not on filedocumented in this encounter Additional Source Comments The information contained in this document represents components of the legal health record. It is not the complete legal health record.[facility]
--- NOTE | 2025-06-11 11:45 | A.OFFVIS_ITS ---
Intake Visit Reasons: PO RT RTC 02/11/25 -2 month follow up Intake Note: Bulmaro is a 79 year old male who presents with complaints of mild intermittent discomfort in his right shoulder after undergoing right shoulder rotator cuff repair surgery on 02/11/2025. He continues going to formal physical therapy. He continues with his home stretching program as well. He denies any fevers or chills. He is currently undergoing testing for possible ?amyloidosis?. Allergies No Known Allergies Allergy (Verified 04/10/25 11:55) Medication List - Last Reconciled 06/11/25 by Shalom Lee MD acetaminophen ER 650 mg PO Q12H PRN clindamycin phosphate 1% 1 appl topical BID ibuprofen 400 mg PO Q6H PRN omeprazole 20 mg PO BID PRN tizanidine 4 mg PO BEDTIME PRN turmeric 400 mg PO DAILY PFSH Medical History (Updated 06/11/25 @ 12:18 by Shalom Lee MD) Hx of fracture of humerus History of headache Arthritis GERD (gastroesophageal reflux disease) Hiatal hernia Hiccups Tubular adenoma Right wrist fracture Right shoulder pain Polyclonal gammopathy Peripheral neuropathy Palpitations Osteoarthritis Numbness Neck pain Left inguinal hernia Kidney lesion [facility] light chain disease BPH (benign prostatic hyperplasia) Gait disorder Ankle fracture, right Elevated blood pressure reading without diagnosis of hypertension Chronic pain in left shoulder Cervical disc disease Carpal tunnel syndrome Aortic atherosclerosis Alcohol use Abnormal liver function tests Surgical History History of surgery on right wrist S/P epidural steroid injection History of ankle surgery History of esophagogastroduodenoscopy (EGD) Hx of tonsillectomy H/O colonoscopy Hx of carpal tunnel repair S/P laminectomy S/P bilateral inguinal hernia repair Hx of repair of left rotator cuff Social History Are you a primary team primary care physician to a significant other at home: No Do you presently have visiting nurse or other home services: No Patient Tobacco Use Status: Never used Tobacco Physical Exam Extrem Other: Right shoulder examination shows that the surgical incisions are well healed, no erythema, mild discomfort with range of motion, no instability Assessment & Plan Assessment & Plan (1) Right shoulder pain: Code(s): M25.511 - Pain in right shoulder Category: Medical Plan Mr. Porter continues to do fairly well after undergoing right shoulder rotator cuff repair surgery on 02/11/2025. I discussed with the patient the fact that his stiffness and strength should continue to improve over the next few months. He will continue going to formal physical therapy for now. He will gradually transition to a home exercise program. He will contact me prior to his follow- up appointment in 3 months should any questions or concerns arise. Feel free to call me at any time should questions regarding his orthopedic management arise. I spent 22 minutes in reviewing the patient's records and imaging studies, seeing the patient and documenting in the medical record. Coding Level of Care Code Est Pt Level 3 (12316) Complex EM visit Add On G2211 Diagnoses Right shoulder pain M25.511
--- OUTSIDE RECORDS SUMMARY | 2025-06-11 15:03 | XMS_ITS | Patient Health Record ---
Author Organization [facility] Address [address] [place] [address] Care Team Providers Care Change Management Consultant Name Role Phone Dr Danielle Hermosillo Primary Care Provider Pippa leleanneAlyce Molina Unavailable [phone] Reason For Referral No Information Medications Medication SIG (Take, Route, Frequency, Duration) Notes Start Date End Date Status Fish Oil 1000 MG Orally Act priya Naproxen Active Jylwiv-Jufjhdczf-FFL Complex 1500 MG Orally Daily Active Social [...] Medicare [employer] [address] [place] [address] [id number] Bulmaro Porter Self - patient is the insured [facility] [address] [place] [address] [id number] Bulmaro Porter Self - patient is the [...]
--- OUTSIDE RECORDS SUMMARY | 2025-06-11 15:03 | XMS_ITS | Clinical Summary ---
Author Organization [facility] Address [address] [place] [id number] Phone Care Team Providers Care Outdoor Studies Director Name Role Phone Danielle Hermosillo MD [...] 1-dose 75+ series) 2021 INFLUENZA VACCINE (#1) 2025 , 07/27/2019, 08/10/2018, Additional history exists COVID-19 VACCINE ( - 2024- season) 2025 11/03/2020 Adult Td,Tdap Booster 08/15/2030 08/15/2020 , [...] file Insurance MEDICARE PART A & B [facility] MEDICARE PART A & B [facility] MEDICARE PART A & B [facility] MEDICARE PART A & B [facility] MEDICARE PART A & B [facility] MEDICARE PART A & B [facility] MEDICARE PART A & B [facility] MEDICARE PART A & B [facility] MEDICARE PART A & B [facility] Care Teams Outdoor Studies Director Relationship Specialty Start Date End Date Danielle Hermosillo MD [address] [place] [address] PCP - General Internal Medicine 01/20/17 Additional Source Comments The information contained in this document represents components of the legal health record. It is not the complete legal health record.[facility]
--- OUTSIDE RECORDS SUMMARY | 2025-06-11 15:03 | XMS_ITS | Encounter Summary ---
Author Organization [facility] Address [address] [place] [address] [place] [address] Phone Care Team Providers Care Insole Rasper Name Role Phone Danielle Hermosillo MD Primary Care Pro vider Encounter Details Date Type Department Care Team (Late st Contact Info) Description 03/15/2017 Procedure Pass [facility] [address] [place] [address] Social History Tobacco Use Types Packs/Day Years [...] on filedocumented in this encounter Care Teams Insole Rasper Relationship Specialty Start Date End Date Danielle Hermosillo MD [address] [place] [address] PCP - General Internal Medicine 01/20/17 documented as of this encounter Additional Source Comments The information contained in this document represents components of the legal health record. It is not the complete legal health record.[facility]
--- OUTSIDE RECORDS SUMMARY | 2025-06-11 15:03 | XMS_ITS | Encounter Summary ---
Author Organization [facility] Address [address] [place] [address] [place] [phone] Phone Care Team Providers Care Extractor And Wringer Operator Name Role Phone Danielle Hermosillo MD Primary Care Pro vider Encounter Details Date Type Department Care Team (Late st Contact Info) Description 03/15/2017 Procedure Pass [facility] [address] [place] [address] Social History Tobacco Use Types Packs/Day Years [...] on filedocumented in this encounter Care Teams Extractor And Wringer Operator Relationship Specialty Start Date End Date Danielle Hermosillo MD [address] [place] [address] PCP - General Internal Medicine 01/20/17 documented as of this encounter Additional Source Comments The information contained in this document represents components of the legal health record. It is not the complete legal health record.[facility]
--- OUTSIDE RECORDS SUMMARY | 2025-06-11 15:03 | XMS_ITS | Encounter Summary ---
Author Organization [facility] Address [address] [place] [address] [place] [phone] Phone Care Team Providers Care Cd Mixer Helper Name Role Phone Danielle Hermosillo MD Primary Care Pro vider Encounter Details Date Type Department Care Team (Late st Contact Info) Description 03/15/2017 Procedure Pass [facility] [address] [place] [address] Social History Tobacco Use Types Packs/Day Years [...] on filedocumented in this encounter Care Teams Cd Mixer Helper Relationship Specialty Start Date End Date Danielle Hermosillo MD [address] [place] [address] PCP - General Internal Medicine 01/20/17 documented as of this encounter Additional Source Comments The information contained in this document represents components of the legal health record. It is not the complete legal health record.[facility]
--- OUTSIDE RECORDS SUMMARY | 2025-06-11 15:03 | XMS_ITS | Clinical Summary ---
Author Organization [facility] Address [address] [place] [address] Care Team Providers Care Puttying And Calking Supervisor Name Role Phone Unavailable Primary Care Provider Unavailabl e Surgical History Surgery Date Site/Laterality Comments OTHER SURGICAL HISTORY 06/15 PROCEDURE: DE OPEN TREATMENT RADIAL SHAFT FRACTURE; COMMENT: at [...] HISTORICAL ROTATOR CUFF REPAIR; COMMENT: Dr. Lee, [facility], infraspinatus tear, spur TONSILLECTOMY PROCEDURE: [...] Patients (1 - 1-dose 75+ series) 2021 Cholesterol Screening (Lipid Panel) 06/05/2024 Falls Risk Assessment 06/05/2024 Hepatitis C Screening 06/05/2024 Social Influencers of Health Screening 06/05/2024 Depression Screening 08/15/2024 COVID-19 Vaccine ( - 2024- season) 2025 07/01/2021, 11/24/2020, 11/03/2020 Influenza Vaccine (#1) 2025 , 04/18/2020, 07/23/2019, [...] Documents on File Type Date Recorded Patient Mechanical And Auto Body Car Checker Expl anation Health Care Decision (hx) 07/19/2016 AD LIZBET DIRECTIVE
== END 2025-06-11 12:15 | disposition home or self-care (01) ==
LOC: HO.HOS 11:43
PROVIDERS: PCP Internal Medicine; Visit Provider Orthopaedic Surgery
DX: M25.511 Pain in right shoulder (principal)
CPT/HCPCS: 99213; G2211

== ENCOUNTER → 2025-06-11 11:43 | Outpatient (BNVA) | payer MEDICARE, BC, SELFPAY | PROVIDERS: PCP Internal Medicine; Visit Provider Orthopaedic Surgery | DX: M25.511 Pain in right shoulder (principal); Z98.890 Other specified postprocedural states | CPT/HCPCS: 99212 ==